=== PATIENT | female | born 1985 | race Caucasian/White ===

== ENCOUNTER 2018-12-04 19:24 | Inpatient (IN) | payer OTHER ==
[2018-12-04] MEDS ORDERED: BETAMET ACET/BETAMET NA INJ 6 MG/1 ML IM ONE (19:50)
[2018-12-04] MEDS ORDERED: HYDRALAZINE HCL INJ/PF 20 MG/1 ML SDV IV ONE ×2 (19:53→20:19)
[2018-12-04] MEDS ORDERED: HYDRALAZINE HCL INJ/PF 20 MG/1 ML SDV ONE ×2 (20:00→20:20)
[2018-12-04 20:10] LABS: APPEARANCE,URINE CLEAR; BILIRUBIN,URINE NEGATIVE (NEGATIVE); COLOR,URINE STRAW; GLUCOSE, URINE NEGATIVE (NEGATIVE); KETONES,URINE NEGATIVE (NEGATIVE); LEUKOCYTE ESTERASE,URINE NEGATIVE (NEGATIVE); NITRITE,URINE NEGATIVE (NEGATIVE); PROTEIN,URINE 100 mg/dL (NEGATIVE); URINE SPECIFIC GRAVITY 1.008; UROBILINOGEN,URINE NEGATIVE mg/dL (<2.0)
[2018-12-04] MEDS ORDERED: BETAMET ACET/BETAMET NA INJ 6 MG/1 ML ONE ×2 (20:11→21:12)
[2018-12-04 20:15] LABS: URINE AMPHETAMINES SCREEN NEGATIVE; URINE BARBITURATES SCREEN NEGATIVE; URINE BENZODIAZEPINES SCREEN NEGATIVE; URINE COCAINE SCREEN NEGATIVE; URINE MARIJUANA (THC) SCREEN NEGATIVE; URINE METHADONE SCREEN NEGATIVE; URINE PHENCYCLIDINE SCREEN NEGATIVE
--- NOTE | 2018-12-04 20:19 | Admission Physical ---
Datetime Report Generated by CPN: 12/04/2018 20:19 CURRENT ADMISSION Chief Complaint: Signs/Symptoms Gestational HTN Indication for Induction: Not Applicable Admit Impression : , Intrauterine ; No Active Labor; Intact Membranes; Observation/Evaluation Admit Plan: Admit to Unit; Observation/Evaluation ALLERGIES Medication Allergies: No Medication Allergies: No Known Allergies (12/04/2018) Latex: No Latex Allergies OBSTETRICAL HISTORY EDC: 02/04/2019 00:00 : 2 Para: 1 Term: 1 : 0 SAB: 0 IAB: 0 Ectopic: 0 Livin Cesareans: 0 VBACs: 0 Multiple Births: 0 SEE RECORDS Alcohol: No Marijuana : No Cocaine: No Other Illicit Drugs: No Cigarettes: Never Smoker. [id number] PHYSICAL EXAM General: Normal HEENT: Normal Neurologic: Normal Thyroid: Deferred Heart: Normal Lungs: Normal Breast: Deferred Back: Normal Abdomen: Normal Genitourinary Exam: Normal Extremities: Normal DTRs: Normal Pelvic Type: Adequate Vital Signs: Reviewed VAGINAL EXAM Contraction Comments: none MEMBRANES Membranes: Intact FETUS A EGA: 31.1 Monitoring: External US FHR- Baseline: 160 Variability: Moderate 6-25bpm Accelerations: 15X15 Decelerations: None FHR Category: Category II Admit Comment: 33yo at 31.1ega (SORIN 02/04/2019) (last delivery in [place] see notes) presents for Elevated BPs at home. PIH labs (WNL) apparently done in office on 11/27 but 24 hr UTP jug just given to her yesterday and she is currently completing 24 hr UTP but left it at home. She reports that she feels poorly and has been in bed all day but feels that she is seeing spots. She reports her BPs have been elevated at home. Initial BP very elevated - Hydalazine ordered. Plan to start new 24 hr UTP, steroids now, PIH labs and admit for observation and attempt to stabilize. May need to transfer observe for now and manage BPs. Need growth and KOBI now - will get portable as patient is not stable to leave floor now. May need to begin mag Sulfate. INFORMED CONSENT Informed Consent Obtained: Risks, Benefits and Alternatives Discussed Signature: with User ID: [email or web address]
[2018-12-04] MEDS ORDERED: LABETALOL HCL 200 MG TABLET ONE ×2 (20:28→21:13)
[2018-12-04 20:40] LABS: UR PRO/CREAT RATIO RESULT 2.1 mg/mg (0.0-0.2); URINE CREATININE 33.5 mg/dL (16-327); URINE PROTEIN 71.7 mg/dL (<12)
[2018-12-04] MEDS ORDERED: HYDRALAZINE HCL INJ/PF 20 MG/1 ML SDV IV PRN (20:42)
[2018-12-04 20:43] LABS: ABSOLUTE EOSINOPHILS # (AUTO) 0.2 10^3/uL (0.0-0.6); ABSOLUTE LYMPHOCYTES (AUTO) 2.4 10^3/uL (0.5-4.7); ABSOLUTE MONOCYTES (AUTO) 0.7 10^3/uL (0.1-1.4); ABSOLUTE NEUT (AUTO) 8.2 10^3/uL (1.7-8.2); BASOPHILS % (AUTO) 0.3 % (0-2); EOSINOPHILS % (AUTO) 1.3 % (0-6); HEMATOCRIT 36.6 % (36.0-47.0); HEMOGLOBIN 12.5 g/dL (12.0-15.5); LYMPHOCYTES % (AUTO) 21.2 % (13-45); MEAN CORPUSCULAR HEMOGLOBIN 30.5 pg (27.0-33.4); MEAN CORPUSCULAR HGB CONC 34.2 g/dL (32.0-36.0); MEAN CORPUSCULAR VOLUME 89 fl (80-97); PLATELET COUNT 246 10^3/uL (150-450); RED CELL DISTRIBUTION WIDTH 12.8 % (11.5-14.0); SEGMENTED NEUTROPHILS % (AUTO) 71.2 % (42-78); TOTAL CELLS COUNTED % (AUTO) 100 %; WHITE BLOOD COUNT 11.5 10^3/uL (4.0-10.5)
[2018-12-04 20:57] LABS: ALBUMIN 3.3 g/dL (3.5-5.0); ALKALINE PHOSPHATASE 99 U/L (38-126); ANION GAP 8 (5-19); ASPARTATE AMINO TRANSFERASE 18 U/L (14-36); BILIRUBIN,DIRECT 0.1 mg/dL (0.0-0.4); BILIRUBIN,TOTAL 0.2 mg/dL (0.2-1.3); BLOOD UREA NITROGEN 9 mg/dL (7-20); CARBON DIOXIDE 23 mmol/L (22-30); CHLORIDE 105 mmol/L (98-107); GLUCOSE 86 mg/dL (75-110); POTASSIUM 4.2 mmol/L (3.6-5.0); TOTAL PROTEIN 6.4 g/dL (6.3-8.2); URIC ACID 4.7 mg/dL (2.5-6.2)
[2018-12-04] MEDS: LABETALOL HCL 200 MG TABLET PO SCH (21:17)
--- NOTE | 2018-12-04 21:38 | RADIOLOGY REPORT (SQ) ---
US PELVIS EXAM DATE: 12/04/2018 7:56 PM CDT HISTORY: Pelvic pain. COMPARISON: None. TECHNIQUE: Grayscale, color Doppler, and spectral Doppler ultrasound images of the pelvis were obtained. FINDINGS: There is a single intrauterine gestation in vertex position. The placenta is anterior. Cervix is 3.5 cm and closed. KOBI is 5.4 cm. heart rate is 165 bpm. Estimated weight is 1569 g +/- 232 g. (37th Percentile) estimated gestational age 30 weeks 3 days. IMPRESSION: Single live intrauterine gestation as above.
[2018-12-04 22:05] LABS: CHLAM PCR NOT DETECTED (NOT DETECT)
[2018-12-05] MEDS ORDERED: DIPHENHYDRAMINE HCL 25 MG CAPSULE ONE ×2 (00:21→22:46)
[2018-12-05] MEDS ORDERED: DIPHENHYDRAMINE HCL 50 MG CAPSULE PO ONE ×2 (00:45→22:37)
[2018-12-05] MEDS ORDERED: LABETALOL HCL 200 MG TABLET ONE ×3 (06:32→22:19)
[2018-12-05] MEDS: LABETALOL HCL 200 MG TABLET PO SCH ×3 (06:33→22:22)
[2018-12-05 07:52] LABS: ABSOLUTE LYMPHOCYTES (AUTO) 1.2 10^3/uL (0.5-4.7); ABSOLUTE MONOCYTES (AUTO) 0.3 10^3/uL (0.1-1.4); ABSOLUTE NEUT (AUTO) 13.8 10^3/uL (1.7-8.2); BASOPHILS % (AUTO) 0.1 % (0-2); HEMATOCRIT 38.6 % (36.0-47.0); HEMOGLOBIN 13.1 g/dL (12.0-15.5); LYMPHOCYTES % (AUTO) 7.8 % (13-45); MEAN CORPUSCULAR HEMOGLOBIN 30.4 pg (27.0-33.4); MEAN CORPUSCULAR HGB CONC 34.1 g/dL (32.0-36.0); MEAN CORPUSCULAR VOLUME 89 fl (80-97); MONOCYTES % (AUTO) 1.7 % (3-13); PLATELET COUNT 264 10^3/uL (150-450); RED BLOOD COUNT 4.32 10^6/uL (3.72-5.28); RED CELL DISTRIBUTION WIDTH 12.9 % (11.5-14.0); SEGMENTED NEUTROPHILS % (AUTO) 90.4 % (42-78); TOTAL CELLS COUNTED % (AUTO) 100 %; WHITE BLOOD COUNT 15.2 10^3/uL (4.0-10.5)
[2018-12-05 08:10] LABS: ALBUMIN 3.5 g/dL (3.5-5.0); ALKALINE PHOSPHATASE 102 U/L (38-126); ANION GAP 12 (5-19); ASPARTATE AMINO TRANSFERASE 20 U/L (14-36); BILIRUBIN,DIRECT 0.1 mg/dL (0.0-0.4); BILIRUBIN,TOTAL 0.1 mg/dL (0.2-1.3); BLOOD UREA NITROGEN 12 mg/dL (7-20); CALCIUM 10.6 mg/dL (8.4-10.2); CARBON DIOXIDE 19 mmol/L (22-30); CHLORIDE 105 mmol/L (98-107); GLUCOSE 113 mg/dL (75-110); POTASSIUM 4.5 mmol/L (3.6-5.0); TOTAL PROTEIN 6.7 g/dL (6.3-8.2); URIC ACID 4.6 mg/dL (2.5-6.2)
[2018-12-05] MEDS ORDERED: BETAMET ACET/BETAMET NA INJ 6 MG/1 ML ONE (08:33)
[2018-12-05] MEDS ORDERED: MAG HYDROX/AL HYDROX/SIMETH SUSP 30 ML UDCUP PO ONE (16:10)
[2018-12-05] MEDS ORDERED: MAG HYDROX/AL HYDROX/SIMETH SUSP 30 ML UDCUP ONE (16:14)
[2018-12-05 20:35] LABS: URINE PROTEIN 58.4 mg/dL (<12)
[2018-12-05 20:36] LABS: 24 HOUR URINE PROTEIN RESULT 2184 mg/day (42-225)
[2018-12-06] MEDS ORDERED: LABETALOL HCL 200 MG TABLET ONE ×3 (07:36→21:32)
[2018-12-06] MEDS: LABETALOL HCL 200 MG TABLET PO SCH ×3 (07:38→21:35)
[2018-12-06 10:07] LABS: ABSOLUTE LYMPHOCYTES (AUTO) 2.1 10^3/uL (0.5-4.7); ABSOLUTE MONOCYTES (AUTO) 0.9 10^3/uL (0.1-1.4); ABSOLUTE NEUT (AUTO) 15.2 10^3/uL (1.7-8.2); BASOPHILS % (AUTO) 0.2 % (0-2); EOSINOPHILS % (AUTO) 0.1 % (0-6); HEMATOCRIT 35.1 % (36.0-47.0); HEMOGLOBIN 11.9 g/dL (12.0-15.5); LYMPHOCYTES % (AUTO) 11.6 % (13-45); MEAN CORPUSCULAR HEMOGLOBIN 30.3 pg (27.0-33.4); MEAN CORPUSCULAR HGB CONC 33.8 g/dL (32.0-36.0); MEAN CORPUSCULAR VOLUME 90 fl (80-97); MONOCYTES % (AUTO) 4.9 % (3-13); PLATELET COUNT 254 10^3/uL (150-450); RED BLOOD COUNT 3.92 10^6/uL (3.72-5.28); RED CELL DISTRIBUTION WIDTH 13.2 % (11.5-14.0); SEGMENTED NEUTROPHILS % (AUTO) 83.2 % (42-78); TOTAL CELLS COUNTED % (AUTO) 100 %; WHITE BLOOD COUNT 18.3 10^3/uL (4.0-10.5)
[2018-12-06 10:31] LABS: ALBUMIN 3.3 g/dL (3.5-5.0); ALKALINE PHOSPHATASE 92 U/L (38-126); ANION GAP 12 (5-19); ASPARTATE AMINO TRANSFERASE 25 U/L (14-36); BILIRUBIN,DIRECT 0.1 mg/dL (0.0-0.4); BILIRUBIN,TOTAL 0.1 mg/dL (0.2-1.3); BLOOD UREA NITROGEN 14 mg/dL (7-20); CALCIUM 9.1 mg/dL (8.4-10.2); CARBON DIOXIDE 18 mmol/L (22-30); CHLORIDE 107 mmol/L (98-107); GLUCOSE 104 mg/dL (75-110); POTASSIUM 4.1 mmol/L (3.6-5.0); TOTAL PROTEIN 6.3 g/dL (6.3-8.2); URIC ACID 5.8 mg/dL (2.5-6.2)
[2018-12-06] MEDS ORDERED: MAG HYDROX/AL HYDROX/SIMETH SUSP 30 ML UDCUP PO PRN (11:16)
[2018-12-06] MEDS ORDERED: MAG HYDROX/AL HYDROX/SIMETH SUSP 30 ML UDCUP ONE (11:18)
[2018-12-06] MEDS ORDERED: NIFEDIPINE 30 MG TAB.ER.24 PO ONE ×2 (23:14→23:18)
[2018-12-07] MEDS: LABETALOL HCL 200 MG TABLET PO SCH ×3 (06:13→22:50)
[2018-12-07 06:56] LABS: ABSOLUTE EOSINOPHILS # (AUTO) 0.1 10^3/uL (0.0-0.6); ABSOLUTE LYMPHOCYTES (AUTO) 2.7 10^3/uL (0.5-4.7); ABSOLUTE MONOCYTES (AUTO) 0.7 10^3/uL (0.1-1.4); ABSOLUTE NEUT (AUTO) 8.4 10^3/uL (1.7-8.2); BASOPHILS % (AUTO) 0.2 % (0-2); EOSINOPHILS % (AUTO) 0.7 % (0-6); HEMATOCRIT 33.3 % (36.0-47.0); HEMOGLOBIN 11.3 g/dL (12.0-15.5); LYMPHOCYTES % (AUTO) 22.8 % (13-45); MEAN CORPUSCULAR HEMOGLOBIN 30.5 pg (27.0-33.4); MEAN CORPUSCULAR HGB CONC 34.1 g/dL (32.0-36.0); MEAN CORPUSCULAR VOLUME 89 fl (80-97); MONOCYTES % (AUTO) 6.1 % (3-13); PLATELET COUNT 207 10^3/uL (150-450); RED BLOOD COUNT 3.72 10^6/uL (3.72-5.28); RED CELL DISTRIBUTION WIDTH 13.4 % (11.5-14.0); SEGMENTED NEUTROPHILS % (AUTO) 70.2 % (42-78); TOTAL CELLS COUNTED % (AUTO) 100 %
[2018-12-07 07:12] LABS: ALBUMIN 3.1 g/dL (3.5-5.0); ALKALINE PHOSPHATASE 82 U/L (38-126); ANION GAP 8 (5-19); ASPARTATE AMINO TRANSFERASE 24 U/L (14-36); BILIRUBIN,TOTAL < 0.1 mg/dL (0.2-1.3); BLOOD UREA NITROGEN 10 mg/dL (7-20); CARBON DIOXIDE 23 mmol/L (22-30); CHLORIDE 105 mmol/L (98-107); GLUCOSE 75 mg/dL (75-110); POTASSIUM 4.4 mmol/L (3.6-5.0); TOTAL PROTEIN 5.8 g/dL (6.3-8.2)
--- NOTE | 2018-12-07 08:49 | PDOC PROGRESS REPORT ---
Subjective Progress Note for:: 12/07/18 Subjective:: Has some sinus pressure. Pelvic pressure that has resolved. Denies TRAN. +FM. Reason For Visit: , HTN PRE E Physical Exam - Physical Exam Vital Signs: Temp Pulse Resp BP Pulse Ox 97.4 F 75 18 143/74 H 99 12/07/18 06:12 12/07/18 06:12 12/07/18 06:12 12/07/18 06:12 12/07/18 06:12 Intake & Output 12/06/18 12/07/18 12/08/18 06:59 06:59 06:59 Output Total 700 Balance -700 Weight 122.1 kg General appearance: PRESENT: no acute distress Head exam: PRESENT: atraumatic, normocephalic Respiratory exam: PRESENT: clear to auscultation gilberto Cardiovascular exam: PRESENT: RRR GI/Abdominal exam: PRESENT: normal bowel sounds, soft, other - gravid Extremities exam: PRESENT: full ROM, joint swelling, other. ABSENT: calf tenderness, pedal edema, tenderness, +1 edema, +2 edema Skin exam: PRESENT: dry Result Laboratory Results: 12/07/18 06:24 12/07/18 06:24 12/06/18 12/06/18 12/07/18 09:53 09:53 06:24 WBC 18.3 H 12.0 H RBC 3.92 3.72 Hgb 11.9 L 11.3 L Hct 35.1 L 33.3 L MCV 90 89 MCH 30.3 30.5 MCHC 33.8 34.1 RDW 13.2 13.4 Plt Count 254 207 Seg Neutrophils % 83.2 H 70.2 Sodium 136.6 L Potassium 4.1 Chloride 107 Carbon Dioxide 18 L Anion Gap 12 BUN 14 Creatinine 0.48 L Est GFR ( Amer) > 60 Glucose 104 Uric Acid 5.8 Calcium 9.1 Total Bilirubin 0.1 L AST 25 Alkaline Phosphatase 92 Total Protein 6.3 Albumin 3.3 L 12/07/18 06:24 WBC RBC Hgb Hct MCV MCH MCHC RDW Plt Count Seg Neutrophils % Sodium 135.5 L Potassium 4.4 Chloride 105 Carbon Dioxide 23 Anion Gap 8 BUN 10 Creatinine 0.43 L Est GFR ( Amer) > 60 Glucose 75 Uric Acid 5.0 Calcium 9.0 Total Bilirubin < 0.1 L AST 24 Alkaline Phosphatase 82 Total Protein 5.8 L Albumin 3.1 L Impressions: Obstetrics Ultrasound 12/04/18 19:56 IMPRESSION: Single live intrauterine gestation as above. Assessment & Plan - Diagnosis (1) Preeclampsia Qualifiers: Trimester: third trimester Qualified Code(s): O14.93 - Unspecified pre-eclampsia, third trimester Is this a current diagnosis for this admission?: Yes Plan: Checkout received from Dr. Montes and POC discussed. BP currently only mildly elevated, improved on Labetalol and Procardia XL. Cont to monitor BP and current antihypertensive regimen. Daily preeclamptic labs. Pt aware of need for immediate delivery should clinical status worsen.
--- NOTE | 2018-12-07 19:50 | RADIOLOGY REPORT (SQ) ---
EXAM DESCRIPTION: U/S PROFILE W/O STRESS COMPLETED DATE/TIME: 12/07/2018 7:29 pm REASON FOR STUDY: NONREACTIVE NST COMPARISON: None. TECHNIQUE: Limited tom-scale realtime and static images of the fetus to measure specified parameter s. LIMITATIONS: None. FINDINGS: HEART RATE: 160 beats per minute. KOBI: 14.2 cm. BREATHING MOVEMENT: 2 points. MOVEMENT: 2 points. POSTURE AND TONE: 2 points. QUALITATIVE KOBI: 2 points. OTHER: No other significant finding. IMPRESSION: BIOPHYSICAL PROFILE: 10/31. Trimester of : Third - 28 weeks to delivery COMMENT: BREATHING MOVEMENTS: 2 POINTS: PRESENT 0 POINTS: ABSENT MOTION: 2 POINTS: PRESENT 0 POINTS: ABSENT TONE: 2 POINTS: PRESENT 0 POINTS: ABSENT AMNIOTIC FLUID VOLUME: 2 POINTS: LARGEST POCKET GREATER THAN 2 CM DEPTH. 0 POINTS: NO POCKET OF 2 CM. TECHNICAL DOCUMENTATION: JOB ID: [id number] 2010 [employer]- All Rights Reserved Reading location - IP/workstation name: [email or web address]
[2018-12-08] MEDS: LABETALOL HCL 200 MG TABLET PO SCH ×3 (05:04→21:52)
--- NOTE | 2018-12-08 11:06 | PDOC PROGRESS REPORT ---
Subjective Progress Note for:: 12/08/18 Subjective:: Patient states that she feels good; patient denies headaches, right upper quadrant tenderness and vision changes. She is ambulating voiding without difficulty. She is tolerating a regular diet. Reports good movement and has no complaints of contractions or cramping Reason For Visit: , HTN PRE E Physical Exam - Physical Exam Vital Signs: Temp Pulse Resp BP Pulse Ox 97.5 F 76 16 161/71 H 100 12/08/18 09:00 12/08/18 06:52 12/08/18 09:00 12/08/18 09:00 12/08/18 09:00 Intake & Output 12/07/18 12/08/18 12/09/18 06:59 06:59 06:59 Intake Total 1280 Output Total 700 1900 Balance -700 -620 Weight 122.1 kg 122.5 kg General appearance: PRESENT: no acute distress Cardiovascular exam: PRESENT: RRR GI/Abdominal exam: PRESENT: normal bowel sounds, soft - Nontender to palpation Extremities exam: ABSENT: calf tenderness, clubbing, full ROM, joint swelling, pedal edema, tenderness, +1 edema, +2 edema, other Result Laboratory Results: 12/07/18 06:24 12/07/18 06:24 12/04/18 20:00 Vaginal/Anorectal Group B Streptococcus Culture - Final NO GROUP B STREPTOCOCCUS RECOVERED Impressions: Obstetrics Ultrasound 12/04/18 19:56 IMPRESSION: Single live intrauterine gestation as above. Stress Test 12/07/18 18:45 IMPRESSION: BIOPHYSICAL PROFILE: 8/8. Trimester of : Third - 28 weeks to delivery Assessment & Plan - Diagnosis (1) Preeclampsia Qualifiers: Trimester: third trimester Qualified Code(s): O14.93 - Unspecified pre-eclampsia, third trimester Is this a current diagnosis for this admission?: Yes - Time Time Spent with patient: 15-24 minutes Within: within 48 hours - Plan Summary Plan Summary: 1. Continue pre-e labs QOD 2. Added Procardia to keep BP 140s/80s 3. Added SCDs
[2018-12-08] MEDS ORDERED: NIFEDIPINE 30 MG TAB.ER.24 PO ONE (11:50)
[2018-12-08] MEDS ORDERED: HYDRALAZINE HCL INJ/PF 20 MG/1 ML SDV ONE (11:50)
[2018-12-08] MEDS: NIFEDIPINE 30 MG TAB.ER.24 PO SCH (12:00)
[2018-12-08] MEDS ORDERED: HYDROXYZINE PAMOATE 25 MG CAPSULE PO PRN (12:59)
[2018-12-08] MEDS ORDERED: HYDROXYZINE PAMOATE 50 MG CAPSULE PO PRN (13:00)
[2018-12-09] MEDS: LABETALOL HCL 200 MG TABLET PO SCH (05:26)
[2018-12-09 07:38] LABS: ABSOLUTE EOSINOPHILS # (AUTO) 0.2 10^3/uL (0.0-0.6); ABSOLUTE LYMPHOCYTES (AUTO) 2.4 10^3/uL (0.5-4.7); ABSOLUTE MONOCYTES (AUTO) 0.8 10^3/uL (0.1-1.4); ABSOLUTE NEUT (AUTO) 8.9 10^3/uL (1.7-8.2); BASOPHILS % (AUTO) 0.3 % (0-2); HEMATOCRIT 36.1 % (36.0-47.0); HEMOGLOBIN 12.4 g/dL (12.0-15.5); LYMPHOCYTES % (AUTO) 19.5 % (13-45); MEAN CORPUSCULAR HEMOGLOBIN 30.4 pg (27.0-33.4); MEAN CORPUSCULAR HGB CONC 34.3 g/dL (32.0-36.0); MEAN CORPUSCULAR VOLUME 89 fl (80-97); MONOCYTES % (AUTO) 6.5 % (3-13); PLATELET COUNT 213 10^3/uL (150-450); RED BLOOD COUNT 4.06 10^6/uL (3.72-5.28); SEGMENTED NEUTROPHILS % (AUTO) 71.7 % (42-78); TOTAL CELLS COUNTED % (AUTO) 100 %; WHITE BLOOD COUNT 12.5 10^3/uL (4.0-10.5)
[2018-12-09 07:42] VITALS: BP 141/76
[2018-12-09 08:01] LABS: ALKALINE PHOSPHATASE 84 U/L (38-126); ANION GAP 7 (5-19); ASPARTATE AMINO TRANSFERASE 20 U/L (14-36); BILIRUBIN,TOTAL 0.3 mg/dL (0.2-1.3); BLOOD UREA NITROGEN 12 mg/dL (7-20); CALCIUM 9.2 mg/dL (8.4-10.2); CARBON DIOXIDE 25 mmol/L (22-30); CHLORIDE 102 mmol/L (98-107); GLUCOSE 75 mg/dL (75-110); POTASSIUM 4.3 mmol/L (3.6-5.0); TOTAL PROTEIN 5.9 g/dL (6.3-8.2)
[2018-12-09] MEDS: NIFEDIPINE 30 MG TAB.ER.24 PO SCH (09:32)
--- NOTE | 2018-12-09 10:31 | PDOC DISCHARGE SUMMARY ---
General - Admit/Disc Date/PCP Admission Date/Primary Care Provider: 12/06/18 16:31 Discharge Date: 12/09/18 - Additional Information Resuscitation Status: Full Code Discharge Diet: As Tolerated Discharge Activity: Balance Activity w/Rest Prescriptions: Labetalol HCl [Normodyne 200 mg Tablet] 100 mg PO Q8 #90 tablet Nifedipine [Procardia XL 30 mg Tablet] 30 mg PO DAILY #30 tab.er.24 Home Medications: Prenat 115/Iron Fum/Folic/Dss [ 19 Tablet] 1 tab PO DAILY 12/04/18 Labetalol HCl [Normodyne 200 mg Tablet] 100 mg PO Q8 #90 tablet 12/09/18 Nifedipine [Procardia XL 30 mg Tablet] 30 mg PO DAILY #30 tab.er.24 12/09/18 History of Present Illness History of Present Illness: JULI CHRIS is a 33 year old female Hospital Course Hospital Course: admitted for severe range pressure/bp control. 24 hour urine protein shows > 2 grams therefore is pre-eclamptic. BP control obtained with labetolol and procardia. patient indicates she feels much better and desires discharge home. No TRAN or vision changes. Spoke with [facility] Dr. Luciano and she agrees with discharge under strict conditions. Physical Exam - Physical Exam Vital Signs: Temp Pulse Resp BP Pulse Ox 98.2 F 72 16 141/76 H 99 12/09/18 08:36 12/09/18 08:36 12/09/18 08:36 12/09/18 08:36 12/09/18 08:36 Intake & Output 12/08/18 12/09/18 12/10/18 06:59 06:59 06:59 Intake Total 1280 3300 Output Total 1900 2500 Balance -620 800 Weight 122.5 kg 122.5 kg General appearance: PRESENT: no acute distress, cooperative GI/Abdominal exam: PRESENT: soft - Obstetrical Exam Fundal Height: 1/u - 2/u Tender: No Result Laboratory Results: 12/09/18 07:07 12/09/18 07:07 12/09/18 12/09/18 07:07 07:07 WBC 12.5 H RBC 4.06 Hgb 12.4 Hct 36.1 MCV 89 MCH 30.4 MCHC 34.3 RDW 13.0 Plt Count 213 Seg Neutrophils % 71.7 Sodium 134.3 L Potassium 4.3 Chloride 102 Carbon Dioxide 25 Anion Gap 7 BUN 12 Creatinine 0.42 L Est GFR ( Amer) > 60 Glucose 75 Uric Acid 5.0 Calcium 9.2 Total Bilirubin 0.3 AST 20 Alkaline Phosphatase 84 Total Protein 5.9 L Albumin 3.0 L Impressions: Obstetrics Ultrasound 12/04/18 19:56 IMPRESSION: Single live intrauterine gestation as above. Stress Test 12/07/18 18:45 IMPRESSION: BIOPHYSICAL PROFILE: 10/31. Trimester of : Third - 28 weeks to delivery Plan Discharge Plan: discharge home with instructions to take her bp daily and keep log. Monitor for pre-e symptoms. Will see Dr. Luciano in [place] on Sunday for evaluation. In meantime, has appt for scan on Sunday which she will keep and then have a NST on Sunday. Going forward, pt will be sen at least once weekly with MFM for growth scans/BPPs and once weekly in our office for NST. Plan is for delivery sometime in the 37th week depending on stability and cervical favorability. If need be delivery to be initiated earlier if patient's condition worsens. Time Spent: Greater than 30 Minutes Acute Heart Failure - Is this a Heart Failure Patient?: No
== END 2018-12-09 11:40 | disposition home or self-care (01) | DRG 833 ==
LOC: LC 19:24 → LR 19:54 → OBSVTOIN 12-06 16:31 → 2S 12-06 23:35
PROVIDERS: ADMIT Student in an Organized Health Care Education/Training Program; ATTEND Student in an Organized Health Care Education/Training Program
DX: O14.93 Unspecified pre-eclampsia, third trimester (principal); Z3A.31 31 weeks gestation of pregnancy
CPT/HCPCS: 36415; 59025; 76815; 76819; 80053; 80307; 81001; 82570; 83615; 84156; 84550; 85025; 86592; 86850; 86900; 86901; 87081; 87491; 87591; G0378; J0360; J0702; J3490

== ENCOUNTER 2018-12-13 18:00 | Inpatient (IN) | payer OTHER ==
[2018-12-13 18:58] LABS: ABSOLUTE BASOPHILS # (AUTO) 0.1 10^3/uL (0.0-0.2); ABSOLUTE EOSINOPHILS # (AUTO) 0.2 10^3/uL (0.0-0.6); ABSOLUTE LYMPHOCYTES (AUTO) 1.9 10^3/uL (0.5-4.7); ABSOLUTE MONOCYTES (AUTO) 0.5 10^3/uL (0.1-1.4); ABSOLUTE NEUT (AUTO) 8.2 10^3/uL (1.7-8.2); BASOPHILS % (AUTO) 0.5 % (0-2); EOSINOPHILS % (AUTO) 1.5 % (0-6); HEMOGLOBIN 12.9 g/dL (12.0-15.5); LYMPHOCYTES % (AUTO) 17.9 % (13-45); MEAN CORPUSCULAR HEMOGLOBIN 31.1 pg (27.0-33.4); MEAN CORPUSCULAR HGB CONC 34.7 g/dL (32.0-36.0); MEAN CORPUSCULAR VOLUME 90 fl (80-97); MONOCYTES % (AUTO) 4.6 % (3-13); PLATELET COUNT 201 10^3/uL (150-450); RED BLOOD COUNT 4.14 10^6/uL (3.72-5.28); SEGMENTED NEUTROPHILS % (AUTO) 75.5 % (42-78); TOTAL CELLS COUNTED % (AUTO) 100 %; WHITE BLOOD COUNT 10.8 10^3/uL (4.0-10.5)
[2018-12-13 19:02] LABS: APPEARANCE,URINE CLEAR; BILIRUBIN,URINE NEGATIVE (NEGATIVE); COLOR,URINE YELLOW; GLUCOSE, URINE NEGATIVE (NEGATIVE); KETONES,URINE NEGATIVE (NEGATIVE); LEUKOCYTE ESTERASE,URINE NEGATIVE (NEGATIVE); NITRITE,URINE NEGATIVE (NEGATIVE); PROTEIN,URINE 100 mg/dL (NEGATIVE); URINE SPECIFIC GRAVITY 1.016; UROBILINOGEN,URINE NEGATIVE mg/dL (<2.0)
--- NOTE | 2018-12-13 19:15 | Non Stress Test Report ---
Non Stress Test Datetime Report Generated by CPN: 12/13/2018 19:14 DEMOGRAPHIC EGA NST: 32.3 INDICATION Indication for Study: Gestational Hypertension; Chronic Hypertension; Ordered by Provider MONITORING Monitor Explained: Monitor Explained; Test Explained; Patient Verbalized Understanding Time on Monitor: 12/13/2018 18:15 Time off Monitor: 12/13/2018 19:09 NST Duration: 54 NST INTERVENTIONS NST Interventions: PO Hydration; Reposition Patient Physician Notified NST: Dr. Jonah BABY A: [id number] BABY A Movement : Present Contraction Frequency : 0 FHR Baseline : 150 Accelerations : Prolonged Accelerations : 15X15 Decelerations : None Variability : Moderate 6-25bpm NST Review: Meets Criteria for Reactive NST NST Review: Meets Criteria for Reactive NST NST Review and Verified By : Mayo REIS Results: Reactive NST Results: Reactive NST REPORT Report Trigger: Send Report
[2018-12-13 19:17] LABS: ALBUMIN 3.4 g/dL (3.5-5.0); ALKALINE PHOSPHATASE 115 U/L (38-126); ANION GAP 11 (5-19); ASPARTATE AMINO TRANSFERASE 22 U/L (14-36); BILIRUBIN,DIRECT 0.1 mg/dL (0.0-0.4); BILIRUBIN,TOTAL 0.2 mg/dL (0.2-1.3); BLOOD UREA NITROGEN 17 mg/dL (7-20); CALCIUM 10.7 mg/dL (8.4-10.2); CARBON DIOXIDE 20 mmol/L (22-30); CHLORIDE 104 mmol/L (98-107); GLUCOSE 119 mg/dL (75-110); POTASSIUM 4.1 mmol/L (3.6-5.0); TOTAL PROTEIN 6.5 g/dL (6.3-8.2); URIC ACID 5.7 mg/dL (2.5-6.2)
[2018-12-13 19:28] LABS: URINE CREATININE 53.6 mg/dL (16-327)
[2018-12-13 19:30] LABS: URINE AMPHETAMINES SCREEN NEGATIVE; URINE BARBITURATES SCREEN NEGATIVE; URINE BENZODIAZEPINES SCREEN NEGATIVE; URINE COCAINE SCREEN NEGATIVE; URINE MARIJUANA (THC) SCREEN NEGATIVE; URINE METHADONE SCREEN NEGATIVE; URINE PHENCYCLIDINE SCREEN NEGATIVE
[2018-12-13 19:34] LABS: UR PRO/CREAT RATIO RESULT 4.3 mg/mg (0.0-0.2); URINE PROTEIN 231.3 mg/dL (<12)
[2018-12-13] MEDS ORDERED: HYDRALAZINE HCL INJ/PF 20 MG/1 ML SDV IV ONE ×2 (19:58→23:59)
[2018-12-13] MEDS ORDERED: HYDRALAZINE HCL INJ/PF 20 MG/1 ML SDV ONE ×2 (20:44→23:17)
[2018-12-13] MEDS ORDERED: RINGERS SOLUTION,LACTATED 1,000 ML IV ONE (20:45)
[2018-12-13] MEDS ORDERED: RINGERS SOLUTION,LACTATED 1,000 ML IV PRN (20:45)
[2018-12-13] MEDS ORDERED: LABETALOL HCL 200 MG TABLET ONE (22:08)
[2018-12-13] MEDS: LABETALOL HCL 200 MG TABLET PO SCH (22:13)
[2018-12-13] MEDS ORDERED: ZOLPIDEM TARTRATE 5 MG TABLET PO ONE (23:12)
[2018-12-13] MEDS ORDERED: ZOLPIDEM TARTRATE 5 MG TABLET ONE (23:17)
[2018-12-13] MEDS ORDERED: NIFEDIPINE 30 MG TAB.ER.24 PO ONE (23:18)
[2018-12-14] MEDS ORDERED: LABETALOL HCL 200 MG TABLET ONE ×3 (05:47→21:40)
[2018-12-14] MEDS: LABETALOL HCL 200 MG TABLET PO SCH ×2 (05:50→13:57)
--- NOTE | 2018-12-14 08:40 | Admission Physical ---
Datetime Report Generated by CPN: 12/14/2018 08:40 CURRENT ADMISSION Chief Complaint: Uterine Contractions Indication for Induction: Not Applicable Admit Impression : , Intrauterine Admit Plan: Admit to Unit; Initiate Labor Protocol; Observation/Evaluation ALLERGIES Medication Allergies: No Medication Allergies: No Known Allergies (12/13/2018) Latex: No Latex Allergies Food Allergies: none Environmental Allergies: none OBSTETRICAL HISTORY EDC: 02/04/2019 00:00 : 2 Para: 1 Term: 1 : 0 SAB: 0 IAB: 0 Ectopic: 0 Livin Cesareans: 0 VBACs: 0 Multiple Births: 0 Gestational Diabetes: No Rh Sensitization: No Incompetent Cervix: No GEENA: No Infertility: No ART Treatment: No Uterine Anomaly: No IUGR: No Hx Previous C/S: No Macrosomia: No Hx Loss/Stillborn: No PIH: No Hx : No Placenta Previa/Abruption: No Depression/PP Depression: No PTL/PROM: No Post Hemorrhage: No Obstetrical History Comments: G1- 2009 at 40 weeks, 5lbs 4oz female. Severe vaginal tear per chart G2- current SEE RECORDS Alcohol: No Marijuana : No Cocaine: No Other Illicit Drugs: No Cigarettes: Never Smoker. [id number] MEDICAL HISTORY Diabetes: No Blood Transfusion: No Pulmonary Disease (Asthma, TB): No Breast Disease: No Hypertension: No [employer] Surgery: No Heart Disease: No Hosp/Surgery: No Autoimmune Disorder: No Anesthetic Complications: No Kidney Disease: No Abnormal Pap Smear: No Neuro/Epilepsy: No Psychiatric Disorders: No Other Medical Diseases: No Hepatitis/Liver Disease: No Significant Family History: No Varicosities/Phlebitis: No Trauma/Violence : No Thyroid Dysfunction: No INFECTIOUS HISTORY Gonorrhea: No Genital Herpes: No Chlamydia: No Tuberculosis: No Syphilis: No Hepatitis: No HIV/AIDS Exposure: No Rash or Viral Illness: No HPV: No PHYSICAL EXAM General: Normal HEENT: Normal Neurologic: Normal Thyroid: Deferred Heart: Normal Lungs: Normal Breast: Deferred Back: Normal Abdomen: Normal Genitourinary Exam: Normal Extremities: Normal DTRs: Normal Pelvic Type: Adequate Vital Signs: Reviewed (Annotations: Data stored by [employer] on behalf of user) VAGINAL EXAM Contraction Comments: none MEMBRANES Membranes: Intact FETUS A EGA: 32.3 Monitoring: External US FHR- Baseline: 160 Variability: Moderate 6-25bpm Accelerations: 15X15 Decelerations: None FHR Category: Category I Presentation: Vertex Admit Comment: 33yo at 32+3ega presents from the office (pt went home against recommendations from provider in the office) with significantly elevated BPs and NRNST. NST was reactive upon arrival and patient initially stated she was going home but finally allowed admission after long discussion of risks. P:C ratio is now doubled from 12/05 and is now 4.3. Labs remain stable. Reviewed recommendations to stay in hospital until delivery or 34 at which time delivery would occur. Delivery for uncontrolled BPs, issues, maternal distress, Sx of severe PreE. Pt asymptomatic. However, patient does not understand the gravity of her disease and need for admission and the need to maintain calm and decrease stimuli in room. Reviewed with patient by myself and nursing staff on several occasions. BID NST and 2x per week BPP. Growth on 12/04 was 1569g and on 12/[address] Luciano with [facility] agreed with recommendations and plan for delivery no later than 34wks. Reviewed may need to deliver by C/S if remote from delivery or vaginal delivery if favorable and able to safely do so. PLANS FOR LABOR AND DELIVERY Labor and Delivery: None Pain Management: None Feeding Preference: Formula Benefit of Breast Feed Discussed: Yes Circumcision: N/A INFORMED CONSENT Informed Consent Obtained: Vaginal Delivery; Risks, Benefits and Alternatives Discussed Signature: with User ID: [email or web address]
[2018-12-14] MEDS: PHENAZOPYRIDINE HCL 200 MG TABLET PO SCH ×3 (09:22→22:19)
[2018-12-14] MEDS ORDERED: NIFEDIPINE 30 MG TAB.ER.24 PO ONE ×2 (09:29→21:40)
[2018-12-14] MEDS: NIFEDIPINE 30 MG TAB.ER.24 PO SCH ×2 (09:30→22:18)
--- NOTE | 2018-12-14 09:50 | RADIOLOGY REPORT (SQ) ---
EXAM DESCRIPTION: U/S PROFILE W/O STRESS COMPLETED DATE/TIME: 12/14/2018 8:41 am REASON FOR STUDY: PreE, Needs BPP, presentation COMPARISON: 12/07/2018, 12/04/2018 Ob ultrasound TECHNIQUE: Limited tom-scale realtime and static images of the fetus to measure specified parameter s. LIMITATIONS: None. FINDINGS: HEART RATE: 141 beats per minute. KOBI: Largest pocket 4.2 cm. BREATHING MOVEMENT: 2 points. MOVEMENT: 2 points. POSTURE AND TONE: 2 points. QUALITATIVE KOBI: 2 points. OTHER: No other significant finding. IMPRESSION: BIOPHYSICAL PROFILE: 10/31. Trimester of : Third - 28 weeks to delivery COMMENT: BREATHING MOVEMENTS: 2 POINTS: PRESENT 0 POINTS: ABSENT MOTION: 2 POINTS: PRESENT 0 POINTS: ABSENT TONE: 2 POINTS: PRESENT 0 POINTS: ABSENT AMNIOTIC FLUID VOLUME: 2 POINTS: LARGEST POCKET GREATER THAN 2 CM DEPTH. 0 POINTS: NO POCKET OF 2 CM. TECHNICAL DOCUMENTATION: JOB ID: [id number] [employer]- All Rights Reserved Reading location - IP/workstation name: [email or web address]
[2018-12-14] MEDS ORDERED: NIFEDIPINE 30 MG TAB.ER.24 PO SCH (10:00)
[2018-12-14] MEDS ORDERED: HYDRALAZINE HCL INJ/PF 20 MG/1 ML SDV ONE (22:27)
[2018-12-14] MEDS ORDERED: ZOLPIDEM TARTRATE 5 MG TABLET ONE (22:47)
[2018-12-14] MEDS: ZOLPIDEM TARTRATE 5 MG TABLET PO SCH (22:50)
[2018-12-14] MEDS ORDERED: HYDRALAZINE HCL INJ/PF 20 MG/1 ML SDV IV ONE (23:00)
[2018-12-14] MEDS ORDERED: DIPHENHYDRAMINE HCL 25 MG CAPSULE ONE (23:26)
[2018-12-14] MEDS ORDERED: ACETAMINOPHEN 325 MG TABLET ONE (23:26)
[2018-12-15] MEDS: LABETALOL HCL 200 MG TABLET PO SCH ×4 (05:56→22:02)
[2018-12-15] MEDS ORDERED: NIFEDIPINE 30 MG TAB.ER.24 PO ONE ×2 (09:23→21:59)
[2018-12-15] MEDS: NIFEDIPINE 30 MG TAB.ER.24 PO SCH ×2 (09:36→22:03)
[2018-12-15 11:41] LABS: ABSOLUTE BASOPHILS # (AUTO) 0.1 10^3/uL (0.0-0.2); ABSOLUTE EOSINOPHILS # (AUTO) 0.2 10^3/uL (0.0-0.6); ABSOLUTE LYMPHOCYTES (AUTO) 2.2 10^3/uL (0.5-4.7); ABSOLUTE MONOCYTES (AUTO) 0.9 10^3/uL (0.1-1.4); ABSOLUTE NEUT (AUTO) 9.1 10^3/uL (1.7-8.2); BASOPHILS % (AUTO) 0.5 % (0-2); EOSINOPHILS % (AUTO) 1.3 % (0-6); HEMATOCRIT 37.7 % (36.0-47.0); HEMOGLOBIN 12.9 g/dL (12.0-15.5); LYMPHOCYTES % (AUTO) 17.5 % (13-45); MEAN CORPUSCULAR HEMOGLOBIN 30.7 pg (27.0-33.4); MEAN CORPUSCULAR HGB CONC 34.2 g/dL (32.0-36.0); MEAN CORPUSCULAR VOLUME 90 fl (80-97); PLATELET COUNT 201 10^3/uL (150-450); RED BLOOD COUNT 4.19 10^6/uL (3.72-5.28); SEGMENTED NEUTROPHILS % (AUTO) 73.7 % (42-78); TOTAL CELLS COUNTED % (AUTO) 100 %; WHITE BLOOD COUNT 12.3 10^3/uL (4.0-10.5)
[2018-12-15 11:55] LABS: ALBUMIN 3.1 g/dL (3.5-5.0); ALKALINE PHOSPHATASE 103 U/L (38-126); ANION GAP 8 (5-19); ASPARTATE AMINO TRANSFERASE 16 U/L (14-36); BILIRUBIN,TOTAL 0.2 mg/dL (0.2-1.3); BLOOD UREA NITROGEN 9 mg/dL (7-20); CALCIUM 9.3 mg/dL (8.4-10.2); CARBON DIOXIDE 23 mmol/L (22-30); CHLORIDE 104 mmol/L (98-107); POTASSIUM 4.5 mmol/L (3.6-5.0); URIC ACID 5.5 mg/dL (2.5-6.2)
[2018-12-15 11:56] LABS: GLUCOSE 69 mg/dL (75-110)
[2018-12-15] MEDS ORDERED: LABETALOL HCL 200 MG TABLET ONE ×2 (13:30→21:58)
[2018-12-15] MEDS ORDERED: ACETAMINOPHEN SOLN 325 MG/10.15 ML UDCUP PO ONE (17:05)
[2018-12-15] MEDS ORDERED: ACETAMINOPHEN 325 MG TABLET PO ONE (18:00)
[2018-12-15] MEDS ORDERED: ACETAMINOPHEN 325 MG TABLET ONE (22:37)
[2018-12-15] MEDS ORDERED: ZOLPIDEM TARTRATE 5 MG TABLET ONE (22:38)
[2018-12-16] MEDS: ZOLPIDEM TARTRATE 5 MG TABLET PO SCH ×2 (00:01→21:44)
[2018-12-16] MEDS: ACETAMINOPHEN 325 MG TABLET ONE ×4 (00:02→13:12)
[2018-12-16] MEDS ORDERED: LABETALOL HCL 200 MG TABLET ONE ×2 (08:56→13:37)
[2018-12-16] MEDS: LABETALOL HCL 200 MG TABLET PO SCH ×3 (08:58→21:43)
[2018-12-16] MEDS ORDERED: NIFEDIPINE 30 MG TAB.ER.24 PO ONE (09:58)
[2018-12-16] MEDS: NIFEDIPINE 30 MG TAB.ER.24 PO SCH ×2 (10:00→21:41)
[2018-12-16] MEDS ORDERED: ACETAMINOPHEN 325 MG TABLET PO ONE (10:20)
--- NOTE | 2018-12-16 10:26 | RADIOLOGY REPORT (SQ) ---
EXAM DESCRIPTION: U/S PROFILE W/O STRESS COMPLETED DATE/TIME: 12/16/2018 10:14 am REASON FOR STUDY: [place], severe PreE, Needs BPP please COMPARISON: 12/14/2018. TECHNIQUE: Limited tom-scale realtime and static images of the fetus to measure specified parameter s. LIMITATIONS: None. FINDINGS: HEART RATE: 145 beats per minute. KOBI: 10.1 cm. BREATHING MOVEMENT: 2 points. MOVEMENT: 2 points. POSTURE AND TONE: 2 points. QUALITATIVE KOBI: 2 points. OTHER: No other significant finding. IMPRESSION: BIOPHYSICAL PROFILE: 10/31. Trimester of : Third - 28 weeks to delivery COMMENT: BREATHING MOVEMENTS: 2 POINTS: PRESENT 0 POINTS: ABSENT MOTION: 2 POINTS: PRESENT 0 POINTS: ABSENT TONE: 2 POINTS: PRESENT 0 POINTS: ABSENT AMNIOTIC FLUID VOLUME: 2 POINTS: LARGEST POCKET GREATER THAN 2 CM DEPTH. 0 POINTS: NO POCKET OF 2 CM. TECHNICAL DOCUMENTATION: JOB ID: [id number] [employer]- All Rights Reserved Reading location - IP/workstation name: [email or web address]
[2018-12-17] MEDS: LABETALOL HCL 200 MG TABLET PO SCH ×3 (05:46→22:00)
[2018-12-17] MEDS ORDERED: ONDANSETRON HCL INJ/PF 4 MG/2 ML SDV IV PRN (06:30)
[2018-12-17] MEDS: DEXTROSE 5%-LACTATED RINGERS 1,000 ML IV PRN ×2 (06:43→16:24)
--- NOTE | 2018-12-17 09:48 | PDOC PROGRESS REPORT ---
Subjective Progress Note for:: 12/17/18 Subjective:: doing well. denies PreE ROS but had some nausea this AM. Reason For Visit: Physical Exam - Physical Exam Vital Signs: Temp Pulse Resp BP Pulse Ox 98.0 F 83 16 145/74 H 97 12/17/18 07:29 12/17/18 07:29 12/17/18 07:29 12/17/18 07:29 12/17/18 07:29 Intake & Output 12/16/18 12/17/18 12/18/18 06:59 06:59 06:59 Output Total 1300 Balance -1300 General appearance: PRESENT: no acute distress, obese Extremities exam: PRESENT: +1 edema Result Laboratory Results: 12/15/18 11:26 12/15/18 11:26 Impressions: Stress Test 12/16/18 10:29 IMPRESSION: BIOPHYSICAL PROFILE: 10/31. Trimester of : Third - 28 weeks to delivery Assessment & Plan - Diagnosis (1) Preeclampsia Qualifiers: Trimester: third trimester Is this a current diagnosis for this admission?: Yes (2) induced hypertension, antepartum Is this a current diagnosis for this admission?: Yes - Time Time Spent with patient: Less than 15 minutes Anticipated discharge: Home Within: Other - Inpatient Certification Based on my medical assessment, after consideration of the patient's comorbidities, presenting symptoms, or acuity I expect that the services needed warrant INPATIENT care.: Yes I certify that my determination is in accordance with my understanding of Medicare's requirements for reasonable and necessary INPATIENT services [42 CFR 412.3e].: Yes Medical Necessity: Failure to Improve With Outpatient Therapy, Need Close Monitoring Due to Risk of Patient Decompensation - Plan Summary Plan Summary: continue to monitor for worsening preE and deliver when condition warrants. Continue day by day monitoring. patient will need an EFW tomorrow
[2018-12-17] MEDS: NIFEDIPINE 30 MG TAB.ER.24 PO SCH ×2 (10:13→22:01)
[2018-12-18] MEDS: DEXTROSE 5%-LACTATED RINGERS 1,000 ML IV PRN (00:40)
[2018-12-18] MEDS: ZOLPIDEM TARTRATE 5 MG TABLET PO SCH (00:41)
[2018-12-18] MEDS ORDERED: METOCLOPRAMIDE HCL ORAL SOLN 10 MG/10 ML UDCUP PO ONE (03:30)
[2018-12-18] MEDS ORDERED: MAG HYDROX/AL HYDROX/SIMETH SUSP 30 ML UDCUP PO ONE (03:30)
[2018-12-18] MEDS ORDERED: LIDOCAINE 2% VISCOUS SOLN 20 ML UDCUP PO ONE (03:30)
[2018-12-18] MEDS: LABETALOL HCL 200 MG TABLET PO SCH ×3 (06:38→22:48)
--- NOTE | 2018-12-18 11:01 | PDOC PROGRESS REPORT ---
Subjective Progress Note for:: 12/18/18 Subjective:: Patient states that she feels good; denies headaches, vision changes and right upper quadrant tenderness. She is ambulating voiding without difficulty. Reports good movement and denies cramping. She requested to go outside a few times a day in the wheelchair with her . Reason For Visit: Physical Exam - Physical Exam Vital Signs: Temp Pulse Resp BP Pulse Ox 98.0 F 88 16 145/73 H 99 12/18/18 07:19 12/18/18 07:19 12/18/18 07:19 12/18/18 07:19 12/18/18 07:19 Intake & Output 12/17/18 12/18/18 12/19/18 06:59 06:59 06:59 Intake Total 6350 Output Total 1300 6800 Balance -1300 -450 Weight 120.7 kg 120.7 kg 125.4 kg General appearance: PRESENT: no acute distress Respiratory exam: PRESENT: clear to auscultation gilberto Cardiovascular exam: PRESENT: RRR GI/Abdominal exam: PRESENT: normal bowel sounds, soft - Gravid Extremities exam: PRESENT: pedal edema, +1 edema - NATALI hose in place Result Laboratory Results: 12/15/18 11:26 12/15/18 11:26 Impressions: Stress Test 12/16/18 10:29 IMPRESSION: BIOPHYSICAL PROFILE: 10/31. Trimester of : Third - 28 weeks to delivery Assessment & Plan - Diagnosis (1) Preeclampsia Qualifiers: Trimester: third trimester Is this a current diagnosis for this admission?: Yes (2) induced hypertension, antepartum Is this a current diagnosis for this admission?: Yes - Time Time Spent with patient: 15-24 minutes - Plan Summary Plan Summary: 1. Continue present care 2. Lasix 20 mg p.o. x1--some edema secondary to continuous fluids, initiated secondary to a nonreactive NST 3. Allow patient to go outside in a wheelchair a few times per day, with her
[2018-12-18] MEDS: NIFEDIPINE 30 MG TAB.ER.24 PO SCH ×2 (11:05→22:49)
[2018-12-18] MEDS ORDERED: FUROSEMIDE 20 MG TABLET PO ONE (11:15)
--- NOTE | 2018-12-18 17:13 | RADIOLOGY REPORT (SQ) ---
EXAM DESCRIPTION: U/S OB LIMITED COMPLETED DATE/TIME: 12/18/2018 5:00 pm REASON FOR STUDY: estimated weight COMPARISON: None. TECHNIQUE: Limited transabdominal grayscale ultrasound for evaluation of specific requested obstetri chrissy parameters. LIMITATIONS: None. FINDINGS: EGA: 31 week 4 day. SORIN: 02/15/2019. EFW: 1818 g. PERCENTILE: 26%. KOBI: Largest pocket 5.4 cm. FHR: 163 beats per minute. PRESENTATION: Cephalic. PLACENTA: Not assessed ANATOMY: Not assessed OTHER: No other significant findings. IMPRESSION: LIMITED OBSTETRICAL ULTRASOUND WITH MEASURED PARAMETERS DELINEATED ABOVE. Trimester of : Third trimester - 28 weeks to delivery. TECHNICAL DOCUMENTATION: JOB ID: [id number] [employer]- All Rights Reserved Reading location - IP/workstation name: [email or web address]
--- NOTE | 2018-12-18 17:14 | RADIOLOGY REPORT (SQ) ---
EXAM DESCRIPTION: U/S PROFILE W/O STRESS COMPLETED DATE/TIME: 12/18/2018 5:00 pm REASON FOR STUDY: Biophysical profile COMPARISON: 12/16/2018. TECHNIQUE: Limited tom-scale realtime and static images of the fetus to measure specified parameter s. LIMITATIONS: None. FINDINGS: HEART RATE: 163 beats per minute. KOBI: 8.1 cm. BREATHING MOVEMENT: 2 points. MOVEMENT: 2 points. POSTURE AND TONE: 2 points. QUALITATIVE KOBI: 2 points. OTHER: No other significant finding. IMPRESSION: BIOPHYSICAL PROFILE: 10/31. Trimester of : Third - 28 weeks to delivery COMMENT: BREATHING MOVEMENTS: 2 POINTS: PRESENT 0 POINTS: ABSENT MOTION: 2 POINTS: PRESENT 0 POINTS: ABSENT TONE: 2 POINTS: PRESENT 0 POINTS: ABSENT AMNIOTIC FLUID VOLUME: 2 POINTS: LARGEST POCKET GREATER THAN 2 CM DEPTH. 0 POINTS: NO POCKET OF 2 CM. TECHNICAL DOCUMENTATION: JOB ID: [id number] [employer]- All Rights Reserved Reading location - IP/workstation name: [email or web address]
[2018-12-18] MEDS ORDERED: ZOLPIDEM TARTRATE 5 MG TABLET PO SCH (22:00)
--- NOTE | 2018-12-18 23:16 | RADIOLOGY REPORT (SQ) ---
EXAM DESCRIPTION: [employer]: US BIOPHYSICAL PROFILE WITHOUT NON STRESS TEST COMPLETED: 12/18/2018 at 2238 CLINICAL HISTORY: 33 years Female; Non reactive nst TECHNIQUE: Biophysical profile was performed, with limited anatomic survey. COMPARISON: None FINDINGS: Movement: 2 Tone: 2 Breathin Fluid: 2 Biophysical profile score 8/8 heart rate 147 BPM Presentation Vertex IMPRESSION: Biophysical profile score 8/8
[2018-12-19] MEDS ORDERED: MAG HYDROX/AL HYDROX/SIMETH SUSP 30 ML UDCUP PO PRN (01:07)
[2018-12-19] MEDS: LABETALOL HCL 200 MG TABLET PO SCH ×2 (06:13→14:28)
[2018-12-19] MEDS ORDERED: MAGNESIUM SULFATE/D5W 1 GM/100 ML RTUPB IV ONE (09:54)
[2018-12-19] MEDS ORDERED: MAGNESIUM SULFATE 4 GM/100 ML RTUPB IV ONE ×2 (09:54→10:08)
[2018-12-19] MEDS ORDERED: MAGNESIUM SULFATE 20 GM/500 ML RTUINJ IV ONE (10:08)
[2018-12-19 10:25] LABS: ABSOLUTE EOSINOPHILS # (AUTO) 0.1 10^3/uL (0.0-0.6); ABSOLUTE LYMPHOCYTES (AUTO) 1.8 10^3/uL (0.5-4.7); ABSOLUTE MONOCYTES (AUTO) 0.7 10^3/uL (0.1-1.4); ABSOLUTE NEUT (AUTO) 8.7 10^3/uL (1.7-8.2); BASOPHILS % (AUTO) 0.3 % (0-2); EOSINOPHILS % (AUTO) 0.9 % (0-6); HEMATOCRIT 35.7 % (36.0-47.0); HEMOGLOBIN 12.2 g/dL (12.0-15.5); LYMPHOCYTES % (AUTO) 15.7 % (13-45); MEAN CORPUSCULAR HEMOGLOBIN 30.5 pg (27.0-33.4); MEAN CORPUSCULAR HGB CONC 34.3 g/dL (32.0-36.0); MEAN CORPUSCULAR VOLUME 89 fl (80-97); PLATELET COUNT 118 10^3/uL (150-450); RED BLOOD COUNT 4.02 10^6/uL (3.72-5.28); SEGMENTED NEUTROPHILS % (AUTO) 77.1 % (42-78); TOTAL CELLS COUNTED % (AUTO) 100 %; WHITE BLOOD COUNT 11.3 10^3/uL (4.0-10.5)
[2018-12-19] MEDS: NIFEDIPINE 30 MG TAB.ER.24 PO SCH (10:49)
[2018-12-19 10:50] LABS: ALBUMIN 3.2 g/dL (3.5-5.0); ALKALINE PHOSPHATASE 115 U/L (38-126); ANION GAP 8 (5-19); ASPARTATE AMINO TRANSFERASE 57 U/L (14-36); BILIRUBIN,TOTAL 0.5 mg/dL (0.2-1.3); BLOOD UREA NITROGEN 13 mg/dL (7-20); CALCIUM 9.4 mg/dL (8.4-10.2); CARBON DIOXIDE 25 mmol/L (22-30); CHLORIDE 103 mmol/L (98-107); GLUCOSE 127 mg/dL (75-110); POTASSIUM 3.8 mmol/L (3.6-5.0); TOTAL PROTEIN 6.3 g/dL (6.3-8.2); URIC ACID 6.2 mg/dL (2.5-6.2)
[2018-12-19] MEDS: MAGNESIUM SULFATE 20 GM/500 ML RTUINJ IV PRN (11:18)
[2018-12-19 11:31] LABS: ABSOLUTE EOSINOPHILS # (AUTO) 0.1 10^3/uL (0.0-0.6); ABSOLUTE LYMPHOCYTES (AUTO) 1.9 10^3/uL (0.5-4.7); ABSOLUTE NEUT (AUTO) 8.7 10^3/uL (1.7-8.2); BASOPHILS % (AUTO) 0.4 % (0-2); EOSINOPHILS % (AUTO) 1.1 % (0-6); HEMATOCRIT 35.9 % (36.0-47.0); HEMOGLOBIN 12.2 g/dL (12.0-15.5); MEAN CORPUSCULAR HGB CONC 33.9 g/dL (32.0-36.0); MEAN CORPUSCULAR VOLUME 89 fl (80-97); MONOCYTES % (AUTO) 8.2 % (3-13); PLATELET COUNT 127 10^3/uL (150-450); RED BLOOD COUNT 4.05 10^6/uL (3.72-5.28); SEGMENTED NEUTROPHILS % (AUTO) 74.3 % (42-78); TOTAL CELLS COUNTED % (AUTO) 100 %; WHITE BLOOD COUNT 11.7 10^3/uL (4.0-10.5)
[2018-12-19 12:01] LABS: URINE CREATININE 112.7 mg/dL (16-327)
[2018-12-19 12:08] LABS: URINE PROTEIN 334.8 mg/dL (<12)
[2018-12-19] MEDS ORDERED: FENTANYL/BUPIVACAINE/NS/PF 300 MCG/150 ML RTUINJ EPI ONE (12:14)
[2018-12-19] MEDS ORDERED: EPHEDRINE SULFATE INJ 50 MG/1 ML AMPULE ONE (12:14)
[2018-12-19] MEDS ORDERED: BUPIVACAINE HCL 0.25 % INJ/PF (2.5 MG/1 ML) 30 ML VIAL ONE (12:15)
[2018-12-19] MEDS ORDERED: OXYTOCIN/NORMAL SALINE 20 UNIT/1,000 ML RTUINJ IV PRN (13:00)
[2018-12-19] MEDS ORDERED: OXYTOCIN 10 UNIT/ML VIAL ONE (13:49)
[2018-12-19] MEDS ORDERED: MISOPROSTOL 0.2 MG TABLET ONE (13:49)
[2018-12-19] MEDS ORDERED: OXYTOCIN/NORMAL SALINE 20 UNIT/1,000 ML RTUINJ ONE (13:50)
[2018-12-19] MEDS ORDERED: LIDOCAINE 1% INJ-PF (10 MG/ML) 30 ML SDV ONE (13:50)
[2018-12-19] MEDS ORDERED: LABETALOL HCL 200 MG TABLET ONE (14:26)
[2018-12-19] MEDS ORDERED: NALBUPHINE HCL INJ 10 MG/1 ML AMPULE INJ ONE (17:06)
[2018-12-19] MEDS ORDERED: NALBUPHINE HCL INJ 10 MG/1 ML AMPULE ONE (17:08)
[2018-12-19 17:47] LABS: ABSOLUTE BASOPHILS # (AUTO) 0.1 10^3/uL (0.0-0.2); ABSOLUTE EOSINOPHILS # (AUTO) 0.1 10^3/uL (0.0-0.6); ABSOLUTE LYMPHOCYTES (AUTO) 1.6 10^3/uL (0.5-4.7); ABSOLUTE MONOCYTES (AUTO) 0.8 10^3/uL (0.1-1.4); ABSOLUTE NEUT (AUTO) 9.7 10^3/uL (1.7-8.2); BASOPHILS % (AUTO) 0.5 % (0-2); HEMATOCRIT 36.3 % (36.0-47.0); HEMOGLOBIN 12.4 g/dL (12.0-15.5); LYMPHOCYTES % (AUTO) 13.3 % (13-45); MEAN CORPUSCULAR HEMOGLOBIN 30.5 pg (27.0-33.4); MEAN CORPUSCULAR HGB CONC 34.2 g/dL (32.0-36.0); MEAN CORPUSCULAR VOLUME 89 fl (80-97); MONOCYTES % (AUTO) 6.6 % (3-13); PLATELET COUNT 113 10^3/uL (150-450); RED BLOOD COUNT 4.07 10^6/uL (3.72-5.28); RED CELL DISTRIBUTION WIDTH 12.9 % (11.5-14.0); SEGMENTED NEUTROPHILS % (AUTO) 78.6 % (42-78); TOTAL CELLS COUNTED % (AUTO) 100 %; WHITE BLOOD COUNT 12.3 10^3/uL (4.0-10.5)
[2018-12-19 18:36] LABS: ALBUMIN 3.2 g/dL (3.5-5.0); ALKALINE PHOSPHATASE 133 U/L (38-126); ANION GAP 9 (5-19); ASPARTATE AMINO TRANSFERASE 56 U/L (14-36); BILIRUBIN,DIRECT 0.1 mg/dL (0.0-0.4); BILIRUBIN,TOTAL 0.5 mg/dL (0.2-1.3); BLOOD UREA NITROGEN 11 mg/dL (7-20); CALCIUM 8.8 mg/dL (8.4-10.2); CARBON DIOXIDE 23 mmol/L (22-30); CHLORIDE 102 mmol/L (98-107); GLUCOSE 82 mg/dL (75-110); TOTAL PROTEIN 6.1 g/dL (6.3-8.2); URIC ACID 5.8 mg/dL (2.5-6.2)
[2018-12-19] MEDS ORDERED: LIDOCAINE 2% INJ-PF (20 MG/ML) 10 ML AMPUL ONE ×2 (19:19→22:30)
[2018-12-20] MEDS: LABETALOL HCL 200 MG TABLET PO SCH ×3 (00:03→14:15)
[2018-12-20] MEDS ORDERED: PROMETHAZINE HCL 25 MG TABLET PO PRN (01:53)
[2018-12-20] MEDS ORDERED: NA PHOS,M-B/NA PHOS,DI-BA (ADULT) 133 ML ENEMA PR PRN (01:53)
[2018-12-20] MEDS ORDERED: ZOLPIDEM TARTRATE 5 MG TABLET PO PRN (01:53)
[2018-12-20] MEDS ORDERED: PROMETHAZINE HCL 25 MG SUPP.RECT PR PRN (01:53)
[2018-12-20] MEDS ORDERED: MISOPROSTOL 0.2 MG TABLET PR PRN (01:53)
[2018-12-20] MEDS ORDERED: OXYTOCIN/NORMAL SALINE 20 UNIT/1,000 ML RTUINJ IV PRN (01:53)
[2018-12-20] MEDS ORDERED: MEASLES,MUMPS&RUBELLA VACC/PF 0.5 ML VIAL SUBCUT PRN (01:53)
[2018-12-20] MEDS ORDERED: BENZOCAINE/MENTHOL AEROSOL SPRAY 56 ML TOP PRN (01:53)
[2018-12-20] MEDS ORDERED: DIPHENHYDRAMINE HCL 25 MG CAPSULE PO PRN (01:53)
[2018-12-20] MEDS ORDERED: GLYCERIN/WITCH HAZEL LEAF 1 EACH MED..WIPE TP PRN (01:53)
[2018-12-20] MEDS ORDERED: MAGNESIUM HYDROXIDE SUSP 30 ML UDCUP PO PRN (01:53)
[2018-12-20] MEDS ORDERED: ACETAMINOPHEN 650 MG SUPP.RECT PR PRN (01:53)
[2018-12-20] MEDS ORDERED: DIPH/PERTUSS(ACELL)/TETANUS VAC/PF 0.5 ML SYR (>=10YO) IM PRN (01:53)
[2018-12-20] MEDS ORDERED: PROMETHAZINE HCL INJ 25 MG/1 ML VIAL IV PRN (01:53)
[2018-12-20] MEDS ORDERED: ACETAMINOPHEN WITH CODEINE #3 TABLET PO PRN ×2 (01:53)
[2018-12-20] MEDS ORDERED: DIBUCAINE 1% OINTMENT 56 GM TP PRN (01:53)
[2018-12-20] MEDS ORDERED: PSEUDOEPHEDRINE HCL 30 MG TABLET PO PRN (01:53)
--- NOTE | 2018-12-20 02:17 | Warning Signs in Babies ---
VOD Warning Signs Datetime Report Generated by [facility]: 12/20/2018 02:17 VOD#608 -Warning Signs in Babies: Needs to be viewed. (12/04/2018 19:30:Waleska Rose RN)
[2018-12-20 02:22] LABS: ABSOLUTE EOSINOPHILS # (AUTO) 0.1 10^3/uL (0.0-0.6); ABSOLUTE LYMPHOCYTES (AUTO) 1.5 10^3/uL (0.5-4.7); ABSOLUTE MONOCYTES (AUTO) 0.9 10^3/uL (0.1-1.4); ABSOLUTE NEUT (AUTO) 11.3 10^3/uL (1.7-8.2); BASOPHILS % (AUTO) 0.3 % (0-2); EOSINOPHILS % (AUTO) 0.5 % (0-6); HEMATOCRIT 35.1 % (36.0-47.0); HEMOGLOBIN 12.1 g/dL (12.0-15.5); LYMPHOCYTES % (AUTO) 10.7 % (13-45); MEAN CORPUSCULAR HEMOGLOBIN 30.6 pg (27.0-33.4); MEAN CORPUSCULAR HGB CONC 34.6 g/dL (32.0-36.0); MEAN CORPUSCULAR VOLUME 89 fl (80-97); MONOCYTES % (AUTO) 6.6 % (3-13); RED BLOOD COUNT 3.96 10^6/uL (3.72-5.28); SEGMENTED NEUTROPHILS % (AUTO) 81.9 % (42-78); TOTAL CELLS COUNTED % (AUTO) 100 %; WHITE BLOOD COUNT 13.8 10^3/uL (4.0-10.5)
[2018-12-20 02:32] LABS: ALKALINE PHOSPHATASE 130 U/L (38-126); ANION GAP 6 (5-19); ASPARTATE AMINO TRANSFERASE 55 U/L (14-36); BILIRUBIN,TOTAL 0.6 mg/dL (0.2-1.3); BLOOD UREA NITROGEN 9 mg/dL (7-20); CALCIUM 8.1 mg/dL (8.4-10.2); CARBON DIOXIDE 23 mmol/L (22-30); CHLORIDE 104 mmol/L (98-107); GLUCOSE 86 mg/dL (75-110); URIC ACID 5.3 mg/dL (2.5-6.2)
[2018-12-20] MEDS ORDERED: LIDOCAINE 2% JELLY 5 ML TUBE ONE (02:39)
[2018-12-20] MEDS ORDERED: IBUPROFEN 800 MG TABLET ONE ×2 (02:51→21:56)
[2018-12-20 03:03] LABS: PLATELET COUNT 89 10^3/uL (150-450)
[2018-12-20] MEDS ORDERED: CEFTRIAXONE INJ 1000 MG VIAL IV ONE (04:30)
[2018-12-20] MEDS ORDERED: MAGNESIUM SULFATE 20 GM/500 ML RTUINJ IV ONE (04:48)
[2018-12-20] MEDS: MAGNESIUM SULFATE 20 GM/500 ML RTUINJ IV PRN (04:50)
[2018-12-20] MEDS ORDERED: LABETALOL HCL 200 MG TABLET ONE ×4 (06:13→21:57)
[2018-12-20] MEDS: NIFEDIPINE 30 MG TAB.ER.24 PO SCH ×2 (06:15→23:07)
[2018-12-20] MEDS: IBUPROFEN 800 MG TABLET PO SCH ×2 (06:44→22:24)
[2018-12-20 09:23] LABS: ABSOLUTE EOSINOPHILS # (AUTO) 0.1 10^3/uL (0.0-0.6); ABSOLUTE LYMPHOCYTES (AUTO) 2.4 10^3/uL (0.5-4.7); ABSOLUTE MONOCYTES (AUTO) 0.8 10^3/uL (0.1-1.4); BASOPHILS % (AUTO) 0.3 % (0-2); EOSINOPHILS % (AUTO) 0.9 % (0-6); HEMATOCRIT 33.8 % (36.0-47.0); HEMOGLOBIN 11.6 g/dL (12.0-15.5); LYMPHOCYTES % (AUTO) 18.1 % (13-45); MEAN CORPUSCULAR HEMOGLOBIN 30.5 pg (27.0-33.4); MEAN CORPUSCULAR HGB CONC 34.3 g/dL (32.0-36.0); MEAN CORPUSCULAR VOLUME 89 fl (80-97); MONOCYTES % (AUTO) 5.8 % (3-13); SEGMENTED NEUTROPHILS % (AUTO) 74.9 % (42-78); TOTAL CELLS COUNTED % (AUTO) 100 %; WHITE BLOOD COUNT 13.3 10^3/uL (4.0-10.5)
[2018-12-20 09:39] LABS: ALBUMIN 2.8 g/dL (3.5-5.0); ALKALINE PHOSPHATASE 115 U/L (38-126); ANION GAP 7 (5-19); ASPARTATE AMINO TRANSFERASE 45 U/L (14-36); BILIRUBIN,DIRECT 0.1 mg/dL (0.0-0.4); BILIRUBIN,TOTAL 0.2 mg/dL (0.2-1.3); BLOOD UREA NITROGEN 11 mg/dL (7-20); CALCIUM 8.6 mg/dL (8.4-10.2); CARBON DIOXIDE 24 mmol/L (22-30); CHLORIDE 104 mmol/L (98-107); GLUCOSE 101 mg/dL (75-110); POTASSIUM 4.1 mmol/L (3.6-5.0); TOTAL PROTEIN 5.6 g/dL (6.3-8.2); URIC ACID 5.6 mg/dL (2.5-6.2)
[2018-12-20 10:04] LABS: PLATELET COUNT 93 10^3/uL (150-450)
[2018-12-20 14:14] LABS: ABSOLUTE BASOPHILS # (AUTO) 0.1 10^3/uL (0.0-0.2); ABSOLUTE EOSINOPHILS # (AUTO) 0.2 10^3/uL (0.0-0.6); ABSOLUTE LYMPHOCYTES (AUTO) 2.5 10^3/uL (0.5-4.7); ABSOLUTE MONOCYTES (AUTO) 0.8 10^3/uL (0.1-1.4); ABSOLUTE NEUT (AUTO) 8.8 10^3/uL (1.7-8.2); BASOPHILS % (AUTO) 0.6 % (0-2); EOSINOPHILS % (AUTO) 1.2 % (0-6); HEMATOCRIT 35.8 % (36.0-47.0); HEMOGLOBIN 12.2 g/dL (12.0-15.5); MEAN CORPUSCULAR HEMOGLOBIN 30.4 pg (27.0-33.4); MEAN CORPUSCULAR HGB CONC 34.1 g/dL (32.0-36.0); MEAN CORPUSCULAR VOLUME 89 fl (80-97); MONOCYTES % (AUTO) 6.7 % (3-13); PLATELET COUNT 104 10^3/uL (150-450); RED BLOOD COUNT 4.03 10^6/uL (3.72-5.28); RED CELL DISTRIBUTION WIDTH 13.4 % (11.5-14.0); SEGMENTED NEUTROPHILS % (AUTO) 71.5 % (42-78); TOTAL CELLS COUNTED % (AUTO) 100 %; WHITE BLOOD COUNT 12.3 10^3/uL (4.0-10.5)
[2018-12-20 19:01] LABS: ABSOLUTE EOSINOPHILS # (AUTO) 0.1 10^3/uL (0.0-0.6); ABSOLUTE LYMPHOCYTES (AUTO) 2.6 10^3/uL (0.5-4.7); ABSOLUTE MONOCYTES (AUTO) 0.7 10^3/uL (0.1-1.4); ABSOLUTE NEUT (AUTO) 7.2 10^3/uL (1.7-8.2); BASOPHILS % (AUTO) 0.4 % (0-2); EOSINOPHILS % (AUTO) 1.4 % (0-6); HEMATOCRIT 32.6 % (36.0-47.0); HEMOGLOBIN 11.3 g/dL (12.0-15.5); LYMPHOCYTES % (AUTO) 24.4 % (13-45); MEAN CORPUSCULAR HEMOGLOBIN 30.9 pg (27.0-33.4); MEAN CORPUSCULAR HGB CONC 34.6 g/dL (32.0-36.0); MEAN CORPUSCULAR VOLUME 89 fl (80-97); MONOCYTES % (AUTO) 6.1 % (3-13); RED BLOOD COUNT 3.65 10^6/uL (3.72-5.28); RED CELL DISTRIBUTION WIDTH 13.3 % (11.5-14.0); SEGMENTED NEUTROPHILS % (AUTO) 67.7 % (42-78); TOTAL CELLS COUNTED % (AUTO) 100 %; WHITE BLOOD COUNT 10.7 10^3/uL (4.0-10.5)
--- NOTE | 2018-12-20 19:18 | PDOC PROGRESS REPORT ---
Subjective Progress Note for:: 12/20/18 Subjective:: Doing well. No complaints. Denies TRAN, CP, SOB, RUQ pain, n/v or vision changes. SHe reports light to moderate locia . Tolerating PO well. Good UOP via webster overnight. Reason For Visit: Physical Exam - Physical Exam Vital Signs: Temp Pulse Resp BP Pulse Ox 98.5 F 85 16 135/66 H 98 12/19/18 07:46 12/19/18 07:46 12/19/18 07:46 12/19/18 07:46 12/19/18 07:46 Intake & Output 12/19/18 12/20/18 12/21/18 06:59 06:59 06:59 Intake Total 1826 538 Output Total 4900 Balance -3074 538 Weight 123.2 kg General appearance: PRESENT: no acute distress, cooperative Respiratory exam: PRESENT: clear to auscultation gilberto Cardiovascular exam: PRESENT: RRR, +S1, +S2 Pulses: PRESENT: +2 pedal pulses bilateral, other - Patellar reflexes 2/4 bilaterally. No clonus GI/Abdominal exam: PRESENT: normal bowel sounds, soft Extremities exam: PRESENT: +1 edema Skin exam: PRESENT: dry, warm Result Laboratory Results: 12/20/18 08:56 12/20/18 12/20/18 12/20/18 02:05 02:05 08:56 WBC 13.8 H RBC 3.96 Hgb 12.1 Hct 35.1 L MCV 89 MCH 30.6 MCHC 34.6 RDW 13.0 Plt Count 89 L Seg Neutrophils % 81.9 H Sodium 133.0 L 135.1 L Potassium 4.0 4.1 Chloride 104 104 Carbon Dioxide 23 24 Anion Gap 6 7 BUN 9 11 Creatinine 0.38 L 0.50 L Est GFR ( Amer) > 60 > 60 Glucose 86 101 Uric Acid 5.3 5.6 Calcium 8.1 L 8.6 Total Bilirubin 0.6 0.2 AST 55 H 45 H Alkaline Phosphatase 130 H 115 Total Protein 6.0 L 5.6 L Albumin 3.0 L 2.8 L 12/20/18 12/20/18 08:56 13:45 WBC 13.3 H 12.3 H RBC 3.80 4.03 Hgb 11.6 L 12.2 Hct 33.8 L 35.8 L MCV 89 89 MCH 30.5 30.4 MCHC 34.3 34.1 RDW 13.0 13.4 Plt Count 93 L 104 L Seg Neutrophils % 74.9 71.5 Sodium Potassium Chloride Carbon Dioxide Anion Gap BUN Creatinine Est GFR ( Amer) Glucose Uric Acid Calcium Total Bilirubin AST Alkaline Phosphatase Total Protein Albumin Impressions: Stress Test 12/18/18 00:00 IMPRESSION: Biophysical profile score 8/8 Obstetrics Ultrasound 12/18/18 00:00 IMPRESSION: LIMITED OBSTETRICAL ULTRASOUND WITH MEASURED PARAMETERS DELINEATED ABOVE. Trimester of : Third trimester - 28 weeks to delivery. Assessment & Plan - Diagnosis (1) HELLP syndrome Is this a current diagnosis for this admission?: Yes Plan: S/p delivery. Continue Magnesium Sulfate drip at 2 gm /hr for 24 hours total. Plan to D/c at 0100 on 12/21/18 Labs improved with Plt 104 . Continue Strict I&O. B/P elevated but no severes. Will monitor for severe range B/p (2) Vaginal delivery Is this a current diagnosis for this admission?: Yes Plan: Routine care. (3) Preeclampsia Qualifiers: Trimester: third trimester Is this a current diagnosis for this admission?: Yes Plan: As above for HELLP
[2018-12-20 19:38] LABS: PLATELET COUNT 97 10^3/uL (150-450)
[2018-12-20] MEDS ORDERED: FAMOTIDINE 20 MG TABLET ONE (21:56)
[2018-12-20] MEDS: FAMOTIDINE 20 MG TABLET PO SCH (23:06)
[2018-12-21] MEDS: IBUPROFEN 800 MG TABLET PO SCH ×4 (04:13→21:45)
[2018-12-21] MEDS: LABETALOL HCL 200 MG TABLET PO SCH ×3 (05:02→21:43)
[2018-12-21 06:28] LABS: HEMATOCRIT 33.2 % (36.0-47.0); HEMOGLOBIN 11.3 g/dL (12.0-15.5); MEAN CORPUSCULAR HEMOGLOBIN 30.8 pg (27.0-33.4); MEAN CORPUSCULAR HGB CONC 34.1 g/dL (32.0-36.0); MEAN CORPUSCULAR VOLUME 90 fl (80-97); PLATELET COUNT 109 10^3/uL (150-450); RED BLOOD COUNT 3.68 10^6/uL (3.72-5.28); RED CELL DISTRIBUTION WIDTH 13.1 % (11.5-14.0); WHITE BLOOD COUNT 10.1 10^3/uL (4.0-10.5)
[2018-12-21] MEDS: SENNOSIDES/DOCUSATE 8.6-50 MG 1 EACH TABLET PO SCH ×3 (09:39→13:21)
[2018-12-21] MEDS: FERROUS SULFATE 325 MG TABLET PO SCH ×3 (09:39→17:51)
[2018-12-21] MEDS: PRENATAL VITAMIN W DHA CAPSULE PO SCH ×3 (09:39→13:22)
[2018-12-21] MEDS: FAMOTIDINE 20 MG TABLET PO SCH ×3 (09:40→13:21)
--- NOTE | 2018-12-21 09:40 | PDOC PROGRESS REPORT ---
Subjective-OB Progress Note for:: 12/21/18 Subjective: Doing well, no c/o, bottle feeding, wearing bra, bleeding scant, denies headache, blurred vision Physical Exam (OB) Vital Signs: Temp Pulse Resp BP Pulse Ox 97.7 F 71 18 146/81 H 99 12/21/18 04:51 12/21/18 04:51 12/21/18 04:51 12/21/18 04:51 12/21/18 04:51 Intake & Output 12/20/18 12/21/18 12/22/18 06:59 06:59 06:59 Intake Total 538 Balance 538 - PIH/Pre-Eclampsia DTR's: 2 + Clonus: Negative Headache: Absent Epigastric Pain: No Visual Changes: No - Lochia Lochia Amount: Small 10-25 ml Lochia Color: Rubra/Red - Abdomen Description: Soft, Round Hernia Present: No Fundal Description: Firm, Midline Fundal Height: u/u - u/2 Objective-Diagnostic Laboratory: 12/21/18 05:38 12/20/18 08:56 12/20/18 12/20/18 12/20/18 08:56 08:56 13:45 WBC 13.3 H 12.3 H RBC 3.80 4.03 Hgb 11.6 L 12.2 Hct 33.8 L 35.8 L MCV 89 89 MCH 30.5 30.4 MCHC 34.3 34.1 RDW 13.0 13.4 Plt Count 93 L 104 L Seg Neutrophils % 74.9 71.5 Sodium 135.1 L Potassium 4.1 Chloride 104 Carbon Dioxide 24 Anion Gap 7 BUN 11 Creatinine 0.50 L Est GFR ( Amer) > 60 Glucose 101 Uric Acid 5.6 Calcium 8.6 Total Bilirubin 0.2 AST 45 H Alkaline Phosphatase 115 Total Protein 5.6 L Albumin 2.8 L 12/20/18 12/21/18 18:00 05:38 WBC 10.7 H 10.1 RBC 3.65 L 3.68 L Hgb 11.3 L 11.3 L Hct 32.6 L 33.2 L MCV 89 90 MCH 30.9 30.8 MCHC 34.6 34.1 RDW 13.3 13.1 Plt Count 97 L 109 L Seg Neutrophils % 67.7 Sodium Potassium Chloride Carbon Dioxide Anion Gap BUN Creatinine Est GFR ( Amer) Glucose Uric Acid Calcium Total Bilirubin AST Alkaline Phosphatase Total Protein Albumin Assessment and Plan(PN) - Assessment and Plan (1) HELLP syndrome Qualifiers: Trimester: third trimester Qualified Code(s): O14.23 - HELLP syndrome (HELLP), third trimester Is this a current diagnosis for this admission?: Yes (2) Vaginal delivery Is this a current diagnosis for this admission?: Yes (3) Preeclampsia Qualifiers: Trimester: third trimester Is this a current diagnosis for this admission?: Yes (4) induced hypertension, antepartum Is this a current diagnosis for this admission?: Yes - Time Spent with Patient Time with patient: Less than 15 minutes Medications reviewed and adjusted accordingly: Yes - Disposition Anticipated Discharge: Home Within: within 24 hours - Home in or Sunday will consult with MD on discharge day
[2018-12-21] MEDS: DOCUSATE SODIUM 100 MG CAPSULE PO SCH ×4 (09:48→17:50)
[2018-12-21] MEDS: NIFEDIPINE 30 MG TAB.ER.24 PO SCH ×2 (09:52→21:43)
[2018-12-21] MEDS ORDERED: LABETALOL HCL 200 MG TABLET PO SCH (22:00)
[2018-12-22] MEDS: IBUPROFEN 800 MG TABLET PO SCH (05:08)
[2018-12-22] MEDS: LABETALOL HCL 200 MG TABLET PO SCH (05:09)
[2018-12-22] MEDS: FAMOTIDINE 20 MG TABLET PO SCH ×2 (07:20→10:01)
[2018-12-22 08:31] VITALS: BP 114/57
--- NOTE | 2018-12-22 08:44 | PDOC PROGRESS REPORT ---
Subjective-OB Progress Note for:: 12/22/18 Subjective: Feeling good, ready to go home, baby staying in nursery for some time, no c/o, eating, ambulating Physical Exam (OB) Vital Signs: Temp Pulse Resp BP Pulse Ox 97.8 F 79 20 114/57 L 97 12/22/18 08:30 12/22/18 08:30 12/22/18 08:30 12/22/18 08:30 12/22/18 08:30 Intake & Output 12/21/18 12/22/18 12/23/18 06:59 06:59 06:59 Intake Total 1500 Balance 1500 - PIH/Pre-Eclampsia DTR's: 2 + Clonus: Negative Headache: Absent Epigastric Pain: No Visual Changes: No - Lochia Lochia Amount: Small 10-25 ml Lochia Color: Rubra/Red - Abdomen Description: Soft, Round Hernia Present: No Fundal Description: Firm, Midline Fundal Height: u/u - u/2 Objective-Diagnostic Laboratory: 12/21/18 05:38 12/20/18 08:56 Assessment and Plan(PN) - Assessment and Plan (1) HELLP syndrome Qualifiers: Trimester: third trimester Qualified Code(s): O14.23 - HELLP syndrome (HELLP), third trimester Is this a current diagnosis for this admission?: Yes (2) Vaginal delivery Is this a current diagnosis for this admission?: Yes (3) Preeclampsia Qualifiers: Trimester: third trimester Is this a current diagnosis for this admission?: Yes (4) induced hypertension, antepartum Is this a current diagnosis for this admission?: Yes - Time Spent with Patient Time with patient: Less than 15 minutes Medications reviewed and adjusted accordingly: Yes - Disposition Anticipated Discharge: Home Within: within 24 hours
--- NOTE | 2018-12-22 08:51 | PDOC DISCHARGE SUMMARY ---
Impression - Admit/DC Date/PCP Admission Date/Primary Care Provider: 12/13/18 21:35 RAVEN DELUNA MD Discharge Date: 12/22/18 - Discharge Diagnosis (1) HELLP syndrome Is this a current diagnosis for this admission?: Yes (2) Vaginal delivery Is this a current diagnosis for this admission?: Yes (3) Preeclampsia Is this a current diagnosis for this admission?: Yes (4) induced hypertension, antepartum Is this a current diagnosis for this admission?: Yes - Additional Information Resuscitation Status: Full Code Discharge Diet: As Tolerated, Regular Discharge Activity: Activity As Tolerated, No Lifting Over 10 Pounds, No Lifting/Push/Pulling, Pelvic Rest Referrals: RAVEN DELUNA MD [Primary Care Provider] - Prescriptions: Labetalol HCl [Normodyne 200 mg Tablet] 200 mg PO Q8 #90 tablet Nifedipine [Procardia XL 30 mg Tablet] 30 mg PO Q12 #60 tab.er.24 Home Medications: Prenat 115/Iron Fum/Folic/Dss [ 19 Tablet] 1 tab PO DAILY 12/04/18 Labetalol HCl [Normodyne 200 mg Tablet] 200 mg PO Q8 #90 tablet 12/22/18 Nifedipine [Procardia XL 30 mg Tablet] 30 mg PO Q12 #60 tab.er.24 12/22/18 HPI Gestational Age: 33.3 Reason(s) for Admission: Induction of Labor Admission Note: Pre-E, HELLP Procedures: NST, Ultrasound, Management of Obstetric Complications Intrapartum Procedure(s): Spontaneous Vaginal Delivery - superficial periclitor al laceration, Mag Sulfate infusions, female , 11/01, weight 3-7 Hospital Course Hospital Course: complicated by Pre-E, HELLP and delivery, stable Results Laboratory Results: WBC 10.1 10^3/uL (4.0-10.5) 12/21/18 05:38 RBC 3.68 10^6/uL (3.72-5.28) L 12/21/18 05:38 Hgb 11.3 g/dL (12.0-15.5) L 12/21/18 05:38 Hct 33.2 % (36.0-47.0) L 12/21/18 05:38 MCV 90 fl (80-97) 12/21/18 05:38 MCH 30.8 pg (27.0-33.4) 12/21/18 05:38 MCHC 34.1 g/dL (32.0-36.0) 12/21/18 05:38 RDW 13.1 % (11.5-14.0) 12/21/18 05:38 Plt Count 109 10^3/uL (150-450) L 12/21/18 05:38 Lymph % (Auto) 24.4 % (13-45) 12/20/18 18:00 [place] % (Auto) 6.1 % (3-13) 12/20/18 18:00 Eos % (Auto) 1.4 % (0-6) 12/20/18 18:00 Baso % (Auto) 0.4 % (0-2) 12/20/18 18:00 Absolute Neuts (auto) 7.2 10^3/uL (1.7-8.2) 12/20/18 18:00 Absolute Lymphs (auto) 2.6 10^3/uL (0.5-4.7) 12/20/18 18:00 Absolute Monos (auto) 0.7 10^3/uL (0.1-1.4) 12/20/18 18:00 Absolute Eos (auto) 0.1 10^3/uL (0.0-0.6) 12/20/18 18:00 Absolute Basos (auto) 0.0 10^3/uL (0.0-0.2) 12/20/18 18:00 Seg Neutrophils % 67.7 % (42-78) 12/20/18 18:00 Sodium 135.1 mmol/L (137-145) L 12/20/18 08:56 Potassium 4.1 mmol/L (3.6-5.0) 12/20/18 08:56 Chloride 104 mmol/L (98-107) 12/20/18 08:56 Carbon Dioxide 24 mmol/L (22-30) 12/20/18 08:56 Anion Gap 7 (5-19) 12/20/18 08:56 BUN 11 mg/dL (7-20) 12/20/18 08:56 Creatinine 0.50 mg/dL (0.52-1.25) L 12/20/18 08:56 Est GFR ( Amer) > 60 (>60) 12/20/18 08:56 Est GFR (MDRD) Non-Af > 60 (>60) 12/20/18 08:56 Glucose 101 mg/dL (75-110) 12/20/18 08:56 Uric Acid 5.6 mg/dL (2.5-6.2) 12/20/18 08:56 Calcium 8.6 mg/dL (8.4-10.2) 12/20/18 08:56 Total Bilirubin 0.2 mg/dL (0.2-1.3) 12/20/18 08:56 Direct Bilirubin 0.1 mg/dL (0.0-0.4) 12/20/18 08:56 Neonat Total Bilirubin Not Reportable 12/20/18 08:56 Neonat Direct Bilirubin Not Reportable 12/20/18 08:56 Neonat Indirect Bili Not Reportable 12/20/18 08:56 AST 45 U/L (14-36) H 12/20/18 08:56 ALT 60 U/L (<35) 12/20/18 08:56 Alkaline Phosphatase 115 U/L (38-126) 12/20/18 08:56 Lactate Dehydrogenase 260 U/L (120-246) H 12/20/18 08:56 Total Protein 5.6 g/dL (6.3-8.2) L 12/20/18 08:56 Albumin 2.8 g/dL (3.5-5.0) L 12/20/18 08:56 Urine Color YELLOW 12/13/18 18:09 Urine Appearance CLEAR 12/13/18 18:09 Urine pH 5.0 (5.0-9.0) 12/13/18 18:09 Ur Specific [place] 1.016 12/13/18 18:09 Urine Protein 100 mg/dL (NEGATIVE) H 12/13/18 18:09 Urine Glucose (UA) NEGATIVE mg/dL (NEGATIVE) 12/13/18 18:09 Urine Ketones NEGATIVE mg/dL (NEGATIVE) 12/13/18 18:09 Urine Blood NEGATIVE (NEGATIVE) 12/13/18 18:09 Urine Nitrite NEGATIVE (NEGATIVE) 12/13/18 18:09 Urine Bilirubin NEGATIVE (NEGATIVE) 12/13/18 18:09 Urine Urobilinogen NEGATIVE mg/dL (<2.0) 12/13/18 18:09 Ur Leukocyte Esterase NEGATIVE (NEGATIVE) 12/13/18 18:09 Urine WBC (Auto) 2 /HPF 12/13/18 18:09 Urine RBC (Auto) 0 /HPF 12/13/18 18:09 Urine Bacteria (Auto) TRACE /HPF 12/13/18 18:09 Squamous Epi Cells Auto 1 /HPF 12/13/18 18:09 Urine Mucus (Auto) RARE /LPF 12/13/18 18:09 Urine Creatinine 112.7 mg/dL (16-327) 12/19/18 11:13 Protein/Creatinin Ratio 3.0 mg/mg (0.0-0.2) H 12/19/18 11:13 Urine Total Protein 334.8 mg/dL (<12) H 12/19/18 11:13 Urine Ascorbic Acid NEGATIVE (NEGATIVE) 12/13/18 18:09 Urine Opiates Screen NEGATIVE 12/13/18 18:09 Urine Methadone Screen NEGATIVE 12/13/18 18:09 Ur Barbiturates Screen NEGATIVE 12/13/18 18:09 Ur Phencyclidine Scrn NEGATIVE 12/13/18 18:09 Ur Amphetamines Screen NEGATIVE 12/13/18 18:09 U Benzodiazepines Scrn NEGATIVE 12/13/18 18:09 Urine Cocaine Screen NEGATIVE 12/13/18 18:09 U Marijuana (THC) Screen NEGATIVE 12/13/18 18:09 RPR NONREACTIVE (NONREACTIVE) 12/13/18 18:42 Blood Type AB POSITIVE 12/13/18 21:00 Antibody Screen NEGATIVE 12/13/18 21:00 Impressions: Stress Test 12/14/18 07:57 IMPRESSION: BIOPHYSICAL PROFILE: 10/31. Trimester of : Third - 28 weeks to delivery Stress Test 12/16/18 10:29 IMPRESSION: BIOPHYSICAL PROFILE: 10/31. Trimester of : Third - 28 weeks to delivery Stress Test 12/18/18 00:00 IMPRESSION: BIOPHYSICAL PROFILE: 10/31. Trimester of : Third - 28 weeks to delivery Stress Test 12/18/18 00:00 IMPRESSION: Biophysical profile score 10/31 Obstetrics Ultrasound 12/18/18 00:00 IMPRESSION: LIMITED OBSTETRICAL ULTRASOUND WITH MEASURED PARAMETERS DELINEATED ABOVE. Trimester of : Third trimester - 28 weeks to delivery. Plan Health Concerns: discussed S&S pf Pre-E PP Plan of Treatment: RTC Sunday on office, visit baby prn Time Spent: Less than 30 Minutes
[2018-12-22] MEDS: DOCUSATE SODIUM 100 MG CAPSULE PO SCH (10:01)
[2018-12-22] MEDS: SENNOSIDES/DOCUSATE 8.6-50 MG 1 EACH TABLET PO SCH ×2 (10:02)
[2018-12-22] MEDS: PRENATAL VITAMIN W DHA CAPSULE PO SCH (10:02)
[2018-12-22] MEDS: NIFEDIPINE 30 MG TAB.ER.24 PO SCH (10:03)
[2018-12-22] MEDS: FERROUS SULFATE 325 MG TABLET PO SCH (10:03)
--- NOTE | 2018-12-25 09:41 | Delivery Summary ---
Del Sum A-C Datetime Report Generated by CPN: 12/25/2018 09:41 DELIVERY PERSONNEL DELIVERY PERSONNEL: [id number] Delivery Doctor:: Aretha Mckenzie MD Anesthesiologist:: Henrry Harrison MD Labor and Delivery Nurse:: Waleska Rose RN Labor and Delivery Nurse:: Jewels Romero RN Nursery Nurse:: Sammi Alaniz RN MSN Bleacher Lard/SENIOR COURT OFFICE ASSISTANT: Sindy Orourke, ST MATERNAL INFORMATION Delivery Anesthesia: Epidural Medications After Delivery: Pitocin Drip 20 Units/1000ml NSS; Cytotec 1000mcg Per Rectum/Vagina Delivery QBL: 100 Delivery QBL: 0 Delivery QBL Comment: 100ml Maternal Complications: Other Other Maternal Complications: HELLP syndrome Complication Details: preeclampsia Provider Comments: VFI delivered in FRANKO presentation. NO nuchal cord. Shoulders and body delivered without difficulty. cord doubly clamped and cut. Placenta delivered intact spontaneously. FF at U and firm with good tone after placement of cytotec 1000mcg per rectum. Small superficial periclitoral laceration repaired for hemostasis with simple interrupted times two. NICU present for baby and due to ega baby was transported to NICU. Spontaneous cry at delivery. Mother stable upon leaving the room. stat labs with cbc and will notify Dr. Harrison re: platlet count. Magnesium sulfate continued pp for 24 hours due to HELLP syndrome then will restart procardia with labetalol for BP control if needed. LABOR SUMMARY EDC: 02/04/2019 00:00 No. Babies in Womb: 1 Attempted: No Labor Anesthesia: Epidural LABOR INFORMATION Reason for Induction: Pre-Eclampsia Onset of Labor: 12/19/2018 18:41 Complete Dilatation: 12/20/2018 01:25 Oxytocin: Induction Group B Beta Strep: negative Antibiotics # of Doses: 0 Steroids Given: Full Course; > 24 Hours before Delivery MEMBRANES Membranes Rupture Method: Artificial Rupture of Membranes: 12/19/2018 18:41 Length of Rupture (hr): 6.82 Amniotic Fluid Color: Clear Amniotic Fluid Amount: Moderate Amniotic Fluid Odor: None STAGES OF LABOR Stage 1 hr: 6 Stage 1 min: 44 Stage 2 hr: 0 Stage 2 min: 5 Stage 3 hr: 0 Stage 3 min: 2 Total Time in Labor hr: 6 Total Time in Labor min: 51 VAGINAL DELIVERY Episiotomy: None Laceration #1: None Laceration Extension #1: N/A Other Laceration: superficial periclitoral Laceration Repair: Yes Laceration Repair Note: small periclitoral laceration repaired for hemostasis. Sponge Count Correct: Yes Sharps Count Correct: Yes CSECTION DELIVERY Primary Indication: N/A Secondary Indication: N/A CSection Incidence: N/A Labor: N/A Elective: N/A CSection Incision: N/A BABY A INFORMATION Delivery Date/Time: 12/20/2018 01:30 Method of Delivery: Vaginal Method of Delivery: Vaginal Method of Delivery: Vaginal Born in Route : No : N/A Forceps: N/A Vacuum Extraction: N/A Shoulder Dystocia : No PRESENTATION/POSITION BABY A Presentation: Cephalic Cephalic Presentation: Vertex Vertex Position: Left Occipital Anterior Breech Presentation: N/A PLACENTA INFORMATION BABY A Placenta Delivery Time : 12/20/2018 01:32 Placenta Method of Delivery: Spontaneous Placenta Method of Delivery: Spontaneous Placenta Status: Delivered SCORES BABY A Heart Rate 1 min: >100 bpm Resp Effort 1 min: Good Cry Reflex Irritability 1 min: Cough or Sneeze or Pulls Away Muscle Tone 1 min: Active Motion Color 1 min: Blue/Pale SCORE 1 MIN: 8 Heart Rate 5 min: >100 bpm Resp Effort 5 min: Good Cry Reflex Irritability 5 min: Cough or Sneeze or Pulls Away Muscle Tone 5 min: Active Motion Color 5 min: Body [place], Extremities Blue SCORE 5 MIN: 9 INFORMATION BABY A Gestational Age at Delivery: 33.3 Gestational Status: - <34 Weeks Infant Outcome : Liveborn Infant Condition : Stable Infant Sex: Female Sex: Female Sex: Female IDENTIFICATION BABY A Verification Date/Time: 12/20/2018 01:37 ID Band Number: [id number] Mother's Name Verified: Yes Infant RN Verifying : K Ramon RN Additional Verifying Personnel: N Richmond RN WEIGHT/LENGTH BABY A Infant Birthweight (gm): 1552 Birthweight (gm): 1522 Infant Weight (lb): 3 Infant Weight (oz): 7 Infant Length (in): 16.50 Infant Length (cm): 41.91 CORD INFORMATION BABY A No. Cord Vessels: 3 Nuchal Cord : N/A Cord Blood Taken: Yes-For Storage (Mom's Blood type +) ASSESSMENT BABY A Skin to Skin: Yes Transferred To: NICU BABY B INFORMATION : N/A SIGNATURES Signature: with User ID: [email or web address]
== END 2018-12-22 10:40 | disposition home or self-care (01) | DRG 807 ==
LOC: LC 18:00 → UNDOADMIN 20:52 → LR 20:52 → 2S 12-16 14:50 → LR 12-19 09:52 → 2S 12-21 02:05
PROVIDERS: ADMIT Student in an Organized Health Care Education/Training Program; ATTEND Student in an Organized Health Care Education/Training Program
PROC: 3E033VJ Introduction of Other Hormone into Peripheral Vein, Percutaneous Approach (ICD-10-PCS; 2018-12-19)
PROC: 10907ZC Drainage of Amniotic Fluid, Therapeutic from Products of Conception, Via Natural or Artificial Opening (ICD-10-PCS; 2018-12-19)
PROC: 10E0XZZ Delivery of Products of Conception, External Approach (ICD-10-PCS; principal; 2018-12-20)
PROC: 0HQ9XZZ Repair Perineum Skin, External Approach (ICD-10-PCS; 2018-12-20)
DX: O14.24 HELLP syndrome, complicating childbirth (principal); Z37.0 Single live birth; O60.14X0 Preterm labor third trimester with preterm delivery third trimester, not applicable or unspecified; O70.0 First degree perineal laceration during delivery; Z3A.33 33 weeks gestation of pregnancy
CPT/HCPCS: 36415; 59025; 76815; 76819; 80053; 80307; 81001; 82570; 83615; 84156; 84550; 85025; 85027; 86592; 86850; 86900; 86901; 87070; 88307; 94760; J0360; J2300; J2405; J2590; J3010; J3475; J3490; J7121